=== PATIENT | male | born 1930 | race Caucasian/White ===

== ENCOUNTER 2017-01-19 09:02 | Inpatient (IN) | payer MEDICARE, BC ==
[2017-01-19 10:04] LABS: Hematocrit 25 % (42-52); Hemoglobin 8.2 g/dl (14.0-18.0); Mean Corpuscular HGB Conc 33 g/dl (31-36); Mean Corpuscular Hemoglobin 34 pg (27-31); Mean Corpuscular Volume 101 fL (80-94); Mean Platelet Volume 7 um3 (7.4-10.4); Red Blood Count 2.46 10^6/ul (4.0-5.4); Red Cell Distribution Width 16 % (10.5-15)
[2017-01-19 10:05] LABS: Comments Flag Yes; White Blood Count 2.6 10^3/ul (3.5-10.8)
[2017-01-19 10:13] LABS: ALT 12 U/L (7-52); AST 13 U/L (13-39); Albumin 2.9 g/dL (3.2-5.2); Alkaline Phosphatase 76 U/L (34-104); Anion Gap 7 mmol/L (2-11); BUN/Creatinine Ratio 16.5 (8-20); Blood Urea Nitrogen 19 mg/dL (6-24); C Reactive Protein 172.16 mg/L (< 5.00); CO2 Carbon Dioxide 23 mmol/L (22-32); Calcium 8.7 mg/dL (8.6-10.3); Chloride 100 mmol/L (101-111); EGFR African American 77.7 (>60); EGFR Non-African American 60.4 (>60); Globulin 3.2 g/dL (2-4); Glucose 116 mg/dL (70-100); Lipase < 10 U/L (11.0-82.0); Potassium 4.2 mmol/L (3.5-5.0); Sodium 130 mmol/L (133-145); Total Protein 6.1 g/dL (6.4-8.9)
[2017-01-19] MEDS ORDERED: Morphine INJ* 2 MG/ML 1 ML SYRINGE (TWO MG - NEW SYRINGE VERSION) IV PRN (13:05)
[2017-01-19 13:54] LABS: Prealbumin 6 mg/dL (18-38)
[2017-01-19] MEDS: Heparin VIAL(*) 5000 UNITS/ML VIAL (FIVE THOUSAND) SUBCUT SCH ×2 (14:41→22:01)
[2017-01-19] MEDS: NS 0.9% 1000 ML* 1,000 ML IV SCH (14:59)
[2017-01-19] MEDS ORDERED: PEG 3000 GI LAVAGE* 1 GALLON PO ONE (19:00)
--- NOTE | 2017-01-19 19:05 | PN ---
Progress Note - Progress Note Date of Service: 01/19/17 Note: Brief Surgery Note: (full consult dictated) 86 yo gen healthy male w/ 3-6 mo of decreased appetite and 30 # wt loss; more recently found to have iron-def anemia and most recently c/o lower abd pain w/ change in stools (constipated; hard stool; denies melena or hematochezia). CT scanned 01/14; sent to ED and admitted to hospitalist [facility] [place] today. Seen by and discussed w/ GI; we were also asked to see. Patient examined; labs and CT reviewed w/ Dr. Rodriguez Imp: suspicious for colon cancer; GI to do colonoscopy 01/20; prep today; surgical plans pending scope; discussed w/ Dr. Rodriguez
--- NOTE | 2017-01-19 19:53 | PN ---
Progress Note - Progress Note Date of Service: 01/19/17 SOAP: Subjective: Patient seen and examined. Care discussed with JESSICA Bose I reviewed his history and the CT scan performed last week He has tenderness along the right abdomen without peritoneal irritation. Labs reviewed-WBC and Hgb are abnormally low Plan: GI plans for colonoscopy tomorrow-will await results All discussed with patient and his and son who were present in the room tonight.
--- NOTE | 2017-01-19 23:51 | HP ---
CC: Dr. Bowser * [facility] MEDICINE HISTORY AND PHYSICAL: DATE OF ADMISSION: 01/19/17 PRIMARY CARE PROVIDER: Dr. Bowser. ATTENDING PHYSICIAN: Dr. Clara Lloyd * (dictation provided by Lorena Pires NP ). CHIEF COMPLAINT: Abdominal pain. HISTORY OF PRESENT ILLNESS: Mr. Rahman is an 86-year-old male with no significant past medical history significant for prostatectomy for prostate cancer in 2002, who presents today to the hospital with concern for abdominal pain. Mr. Rahman has a little bit of problems with confusion and short-term memory loss and some of the information is also obtained from his , who is at the bedside. Per the report, Mr. Rahman has had ongoing abdominal pain for about 2 to 3 months. However, over the past 3 weeks, the pain has become much more severe. He is followed up with his primary care physician, Dr. Bowser, and ultimately a CT abdomen and pelvis was ordered for 01/14/17. The radiologist spoken to Dr. Bowser, who spoke with the patient to note that there was significant edema and bowel wall thickening in the transverse colon with high concern for possible neoplastic process. The patient had persistent and more severe pain over the intervening days. He is having some difficulty ambulating due to pain. He is not having significant nausea or vomiting, but he has a very poor appetite and eats 1 meal a day with some supplemental Boost to improve his nutrition with his 's encouragement. He has had some bowel irregularities which they seemed to just attribute to the CT dye oral contrast. Today, he had a formed stool that was small pellets; there is no evidence of blood. Stool has not been black. In addition to this, Mr. Rahman and his are concerned for the patient's worsening balance issues and confusion. The states that sometimes he will go to look for something and even though, it is right in front of him, he cannot find it. He does not seem to note any vision changes. She also notes that he has had balance issues. This issue with increased worsening short-term memory, increased confusion, and balance issues have been going on for about 6 months. In the emergency room Mr. Rahman had labs, which confirmed a stable leukopenia with white blood cell count of 2.6. He has a worsening anemia with a hemoglobin 8.2, his BUN and creatinine are normal. His C-reactive protein is 172.16. His vitals are stable. He is afebrile. PAST MEDICAL HISTORY: 1. History of prostatectomy for prostate cancer with Dr. De Leon in 2002. 2. Tonsillectomy at age 5. 3. Hernia repair. MEDICATIONS: Ibuprofen 200 mg p.o. daily. ALLERGIES: No known drug allergies. FAMILY HISTORY: The patient reports his mother in 93 of old age. Dad at 76 of unknown causes. SOCIAL HISTORY: No report of alcohol, tobacco, or drug use. The patient lives with his who is his healthcare proxy. REVIEW OF SYSTEMS: Constitutional: No fever, no chills. Positive for 10- pound weight loss. Cardiac: No chest pain, no edema. Respiratory: No cough, hemoptysis, or shortness of breath. GI: No nausea, vomiting. Positive for poor appetite. Some bowel irregularity, but no description of significant diarrhea. Positive for abdominal pain, primarily along the right mid abdomen. : No gross hematuria, dysuria. Positive for prostate cancer. Neuro: No focal weakness or sensory loss. Positive for impaired balance and short-term memory loss. Eyes: No visual complaints. ENT: No dysphagia. Musculoskeletal : No arthralgias, myalgias. Skin: No rashes, no lesions. Psych: No depression or anxiety. PHYSICAL EXAMINATION GENERAL: Mr. Rahman is sitting in the bed. He is in no acute distress. VITAL SIGNS: Temperature 98.1, pulse rate 84, respiratory rate 15, O2 saturation 97% on room air, blood pressure 99/48. LUNGS: Clear to auscultation bilaterally with no accessory muscle use and good aeration. HEART: S1, S2. No murmur, rub, or gallop, and regular. ABDOMEN: Soft, nontender. Bowel sounds are positive x4. EXTREMITIES: No cyanosis or edema. NEURO: He is alert, he is oriented x3. He does have some evident short-term memory loss and a little bit of difficulty relating his story to me, although he does have good grasp on most of the details. He moves all extremities equally. There is no facial asymmetry or focal weakness. Extraocular movements are intact. His pupils were equal and reactive. There is no apparent visual field cut on my examination. He has good rapid alternating movements of hands. His [id number] is appropriate. SKIN: Intact. DIAGNOSTIC STUDIES/LAB DATA: Sodium 130, potassium 4.2, chloride 100, serum bicarbonate 23, BUN 19, creatinine 1.15, glucose 116. CRP 172.16. Lipase less than 10. WBC 2.6, hemoglobin 8.2, hematocrit 25, platelet count 247. CT abdomen and pelvis from 01/14/17 is read as follows: "There is marked circumference of wall thickening with submucosal edema in the transverse colon just distal to the hepatic flexure measuring up to 8 cm in length. Pericolonic infiltration of fat is noted. The possibility of a neoplastic process such as colon carcinoma should be considered. A focal colitis is considered less likely. No definite hepatic lesions are noted. ASSESSMENT AND PLAN: Mr. Rahman is an 86-year-old male with past medical history of prostate cancer, who presents today to the hospital with concern for ongoing abdominal pain that is worsening in severity associated with a 10-pound weight loss and new finding of possible colonic mass on CT abdomen and pelvis from 01/14/17. Our plans for observation in the hospital for the followin. Abdominal pain. I suspect the patient likely has a colonic cancer, although this will not be proven until he is able to have a biopsy. Plan for GI consultation with Dr. Siani. I have also consulted Dr. Rodriguez to review the case today to see if it will be appropriate to involve surgery at this stage , given the severity of the patient's pain. He shows no evidence of obstruction. He did have a bowel movement today. He is comfortable in the bed at the time of my examination. He has had no nausea and vomiting. Plan for morphine p.r.n. as well as Zofran. He will have IV fluids overnight. 2. Anemia. I suspect this is related to a possible malignancy in the colon. There is no report of black stool or lynette red blood, guaiac stool will be sent. At this point, his blood pressure is almost running about 100 systolically. He does have issues with balance, but there is no description of lightheadedness or dizziness. I think he is asymptomatic and will continue to monitor with CBC in the a.m. and transfuse as indicated. 3. Leukopenia, again I think this is secondary to his likely malignancy. I see no evidence of infection and he has no fever. He has no description of symptoms that would indicate infection. Plan to monitor. 4. DVT prophylaxis. With heparin subcu. 5. Code status is DNR and MOLST form has been completed with the patient and with at the bedside. 6. Disposition. To medical floor. TIME SPENT: Approximately 60 minutes was spent in admission of this patient, more than half of the time was spent with the patient at the bedside reviewing the events leading up to this hospitalization, performing the physical examination, and reviewing the plan of care. LORENA PIRES NP [id number]/CPS #: [id number] JEWELL
--- NOTE | 2017-01-20 03:35 | CONS ---
CC: Dr. Bowser, [facility] * SURGICAL CONSULT NOTE: DATE OF CONSULT: 01/19/17 ATTENDING SURGEON: Dr. Bright Rodriguez. CHIEF COMPLAINT: Possible colon cancer. HISTORY OF PRESENT ILLNESS: This is an 86-year-old male, who last underwent screening colonoscopy approximately 10 years ago with a reportedly normal study at that time. He has a 3- to 6-month period of decreased appetite with the resultant 30-pound weight loss. He was noted a couple of weeks ago to be anemic and also began to experience some stomach aches, initially noted on the left side and then radiating to the right side. These pains have been most notable in the morning but would decrease somewhat as the day went on, though never disappearing entirely. More recently, his pain increased and was associated with increased bloating and distention as well as a band-like sensation around his abdomen. He has also had 2 to 3 weeks of constipation with a passage of hard stool. He denies any melena, loose stool, or hematochezia. He has had lab work which shows anemia, but also leukopenia. A CT scan of the abdomen and pelvis was obtained on 01/14/17. This showed an area of significant thickening of the transverse colon just distal to the hepatic flexure with marked wall thickening with infiltration of the pericolonic fat and with concern for possible neoplasm. Also, noted was diverticulosis but without evidence of diverticulitis. The patient was referred by his primary care office to the ED and was admitted by the hospitalist service. He has already been seen by Dr. Saini from GI and plan is for a bowel prep this evening and colonoscopy tomorrow. At the present time , the patient states that he is without significant pain and in fact had by his recollection a normal bowel movement this morning. Of note, the patient is not always consistent in terms of his history and admits to some memory problems. There is no known family history of colorectal cancer. PAST MEDICAL HISTORY: Unremarkable for any chronic or significant past medical problems other than prostate cancer. As noted above, he does admit to some memory loss. He has been using ibuprofen of late p.r.n. for his abdominal pain. PAST SURGICAL HISTORY: Previous surgeries include tonsillectomy as a child, radical prostatectomy with Dr. De Leon in 2002 (most recent PSA this past year less than 1), open left inguinal herniorrhaphy with mesh in 2004, and bilateral cataract extraction with lens implant. CURRENT MEDICATIONS: He takes nothing prescription. He is takin. Vitamin D supplement once daily. 2. Ibuprofen 200 mg once daily. DRUG ALLERGIES: None known. FAMILY HISTORY: Negative for anesthesia problems, bleeding, or clotting disorders and as noted negative for colorectal cancer. SOCIAL HISTORY: The patient lives with his at home. 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 He is a former pipe smoker, who quit in 1971. He drinks on an average 1 glass of wine per day. He denies other drug use. REVIEW OF SYSTEMS: General: No recent constitutional symptoms or acute illnesses other than described in the HPI, weight loss as noted in the HPI with decreased appetite. Cardiovascular: No history of hypertension, chest pain, NV , palpitations, or heart murmur. Respiratory: No history of asthma, chronic cough, or shortness of breath. GI: As above per HPI, no additions. : No problems reported other than occasional urinary urgency and/or incontinence. I am not sure if he is currently followed by Dr. De Leon. Endocrine: No diabetes or thyroid dysfunction. Neuropsychological: Memory loss per his history and by limited exam. PHYSICAL EXAM: Height 5 feet 10 inches; weight 140 pounds by history; T-max 99.1, currently 98; blood pressure 109/48; pulse 73; respirations 18; room air saturation 100%. General: Well-nourished elderly male in no acute distress. He appears comfortable lying on the bed. Skin: Warm and dry, no suspicious rashes or lesions noted. HEENT: Pupils are equal, round, and reactive. EOMs intact. Positive for conjunctival pallor. No scleral icterus though he does have some yellowish discoloration around his eyes. Oropharynx, mucous membranes are moist. Teeth in [id number] repair. No intraoral lesions. Neck : No cervical or supraclavicular lymphadenopathy. Heart: Regular rhythm. No murmur noted. Lungs: Clear to auscultation. No rales or wheezes. Abdomen: Well-healed lower midline incision. I was not able to immediately notice a left inguinal herniorrhaphy incision. Bowel sounds are present. Abdomen is flat, not apparently distended, soft, and with tenderness limited to palpation in the right upper quadrant where there is a palpable mass. There are no peritoneal signs by rigidity, guarding, or referred tenderness. No palpable inguinal hernias. Genitalia and rectal are otherwise not done. Back: No spinous process or CVA tenderness. Extremities: No edema. Neurological: Grossly intact with some apparent memory deficits. The patient sometimes searches for words and/or uses incorrect terms or phrases ("Dr. De Leon told me I would not need to worry about my prostate cancer until the year 3000"). DIAGNOSTIC STUDIES/LAB DATA: White blood cell count 2600 (consistent with that measured since 01/02/17), hemoglobin 8.2 (down from 9.4), MCV was elevated prior to his acute illness. Electrolytes: Sodium 130, chloride 100, potassium is normal at 4.2, BUN and creatinine are normal, glucose is 116, CRP is elevated at 172. Albumin and prealbumin are decreased at 2.9 and 6 respectively. Iron level is recently measured and decreased to 27. I did not see specifically a CEA level. PSA level as noted above less than [address] scan with the result as noted above. IMPRESSION: Colon mass with high likelihood of being malignancy. PLAN: The patient will undergo a colonoscopy tomorrow after prep this evening. Surgical plans and recommendations will follow pending those results. The case was discussed with Dr. Rodriguez including personal review of the CT scan and lab work. Dr. Rodriguez will also see the patient for confirmation of findings and followup for recommendation and plan. JESSICA JOINER [id number]/[facility] [place] #: [id number] B[facility] SETON HOSPITALDavie
[2017-01-20] MEDS: Heparin VIAL(*) 5000 UNITS/ML VIAL (FIVE THOUSAND) SUBCUT SCH ×3 (05:56→21:04)
[2017-01-20] MEDS ORDERED: PEG 3000 GI LAVAGE* 1 GALLON PO ONE (07:00)
[2017-01-20 07:08] LABS: Comments Flag Yes; Hematocrit 24 % (42-52); Mean Corpuscular HGB Conc 34 g/dl (31-36); Mean Corpuscular Hemoglobin 34 pg (27-31); Mean Corpuscular Volume 100 fL (80-94); Mean Platelet Volume 7 um3 (7.4-10.4); Red Blood Count 2.35 10^6/ul (4.0-5.4); Red Cell Distribution Width 16 % (10.5-15); White Blood Count 2.7 10^3/ul (3.5-10.8)
[2017-01-20 07:25] LABS: EGFR African American 103.1 (>60); EGFR Non-African American 80.2 (>60); Potassium 3.7 mmol/L (3.5-5.0)
[2017-01-20] MEDS: NS 0.9% 1000 ML* 1,000 ML IV SCH (07:47)
--- NOTE | 2017-01-20 08:34 | CONS ---
CC: Dr. Bowser * CONSULTATION REPORT: DATE OF CONSULTATION: 01/19/17 REQUESTING PHYSICIAN: Lorena Pires NP. INDICATION: Colon mass. NARRATIVE: Mr. Rahman is a very pleasant, generally healthy 86-year-old gentleman, who does not take any medicines, who states over the past few weeks he has developed worsening abdominal pain. He states that it would be most severe first thing in the morning and would generally get better as the day goes on. He describes it as a belt like sensation across the middle of his abdomen. There has been no nausea, no vomiting. He has had increased constipation. He will have 3 bowel movements a week. He denies any blood in the stool. He also noticed decreased oral intake. He is not as hungry as he used to be. He has lost some weight. No fevers or chills. No rashes. Of note , he did have a colonoscopy with Dr. Nielsen in 2005, at which time a small polyp was removed. He denies any family history of colorectal cancer or colorectal polyps. PAST MEDICAL HISTORY: Prostate cancer. PAST SURGICAL HISTORY: Tonsillectomy, prostatectomy for prostate cancer. ALLERGIES: None. MEDICATIONS: Advil just started recently for his abdominal pain. FAMILY HISTORY: No GI malignancies in the family. SOCIAL HISTORY: Rare alcohol. No smoking. No IV drugs. He lives with his . REVIEW OF SYSTEMS: Twelve systems reviewed, other than that mentioned in the HPI were unremarkable. PHYSICAL EXAMINATION: Vital Signs: Temperature is 99.1, blood pressure is 115/ 44, respiratory rate of 16, O2 sat is 100%, pulse is 75. General: Well appearing 86- year-old male appears his stated age. Alert, oriented, pleasant, fluent. HEENT: Mucous membranes are moist without lesions, ulcers or exudates. Neck is supple. Trachea is midline. Head is normocephalic, atraumatic. Lymph : No supraclavicular or cervical lymphadenopathy. Heart: Regular rate and rhythm. Lungs: Clear to auscultation. No wheezes, rales, or rhonchi. Abdomen : Positive bowel sounds. Soft. He is tender throughout, but definitely more pronounced in the right upper quadrant. No rebound. No guarding. Skin is warm and dry. LABORATORY DATA/DIAGNOSTIC DATA: Labs of note, white count is 2.6, creatinine is 1.1, BUN is 19, hemoglobin 8.2, platelets of 247. He also has a CT of the abdomen and pelvis from the , which reveals marked circumferential wall thickening with submucosal edema in the transverse colon just distal to the hepatic flexure measuring up to 8 cm in length. No hepatic lesions are noted. ASSESSMENT: A pleasant 86-year-old gentleman with a recent CT showing possible colon cancer in his proximal transverse colon. At this point, he does need a colonoscopy. We will try and prep him adequately tonight and perform a colonoscopy tomorrow. This was discussed with the patient and in detail, they are agreeable. [id number]/CPS #: [id number] MTDD
[2017-01-20] MEDS ORDERED: Midazolam* 1 MG/ML 10 ML VIAL (10 MG) ONE (13:52)
[2017-01-20] MEDS ORDERED: Meperidine SYRINGE* 50 MG/ML ONE (13:52)
[2017-01-20] MEDS ORDERED: Morphine INJ* 2 MG/ML 1 ML SYRINGE (TWO MG - NEW SYRINGE VERSION) IV PRN (15:59)
--- NOTE | 2017-01-20 16:00 | PN ---
Subjective Date of Service: 01/20/17 Interval History: Sleeping in bed. Objective Active Medications: Acetaminophen (Tylenol Tab*) 650 mg PO Q6H PRN PRN Reason: PAIN Heparin Sodium (Porcine) (Heparin Vial(*)) 5,000 units SUBCUT Q8HR [facility] Last Admin: 01/20/17 14:04 Dose: Not Given Sodium Chloride (Ns 0.9% 1000 Ml*) 1,000 mls @ 75 mls/hr IV PER RATE [facility] Last Admin: 01/20/17 07:47 Dose: 75 mls/hr Morphine Sulfate (Morphine Inj (Syringe)*) 2 mg IV Q4H PRN PRN Reason: PAIN - MILD Ondansetron HCl (Zofran Inj*) 4 mg IV Q6H PRN PRN Reason: NAUSEA Vital Signs 01/19/17 01/19/17 01/19/17 16:20 19:53 20:00 Temperature 98.0 F 98.3 F Pulse Rate 73 75 Respiratory 18 20 16 Rate Blood Pressure 109/48 106/50 (mmHg) O2 Sat by Pulse 100 98 Oximetry 01/20/17 01/20/17 01/20/17 00:06 03:42 07:44 Temperature 99.0 F 98.4 F Pulse Rate 87 85 67 Respiratory 18 16 16 Rate Blood Pressure 130/59 102/49 95/25 (mmHg) O2 Sat by Pulse 98 100 96 Oximetry 01/20/17 01/20/17 01/20/17 07:50 08:00 15:43 Temperature 97.5 F Pulse Rate 64 Respiratory 16 16 Rate Blood Pressure 98/42 113/43 (mmHg) O2 Sat by Pulse 97 Oximetry 01/20/17 15:48 Temperature 97.5 F Pulse Rate 64 Respiratory 16 Rate Blood Pressure 113/43 (mmHg) O2 Sat by Pulse 97 Oximetry Oxygen Devices in Use Now: None Appearance: Head partly up in bed, sleeping. Looks comfortable. Respiratory: Symmetrical Chest Expansion and Respiratory Effort, Clear to Auscultation Cardiovascular: NL Sounds; No Murmurs; No JVD, RRR, No Edema, - - Pulse strong and regular Extremities: No Edema, No Clubbing, Cyanosis, - Skin: No Rash or Ulcers, No Nodules or Sclerosis, - Neurological: - - Sleeping deeply, did not awaken. No tremor. Result Diagrams: 01/20/17 06:36 01/20/17 06:36 Assess/Plan/Problems-Billing Assessment: - Patient Problems (1) Colonic thickening Current Visit: Yes Status: Acute Code(s): K63.9 - DISEASE OF INTESTINE, UNSPECIFIED SNOMED Code(s): 361316821 Comment: Marked thickening of transverse colon. Colonoscopy scheduled for . (2) Anemia Current Visit: Yes Status: Acute Code(s): D64.9 - ANEMIA, UNSPECIFIED SNOMED Code(s): 718801905 Comment: Suspect mainly ACD. Note sl elevated MCV. (3) Leukopenia Current Visit: Yes Status: Acute Code(s): D72.819 - DECREASED WHITE BLOOD CELL COUNT, UNSPECIFIED SNOMED Code(s): 66682749 Comment: Possibly related to an underlying malignancy.
--- NOTE | 2017-01-20 17:32 | PN ---
Progress Note - Progress Note Date of Service: 01/20/17 SOAP: Subjective: Sleeping in his bed, just returned from colonoscopy suite. at bedside, eating dinner. Patient appears comfortable. states patient was tired from bowel prep and colonoscopy today, would like to rest for the evening. Per , he had no complaints today. Objective: VSS, afebrile Exam deferred at this time Colonoscopy operative report is not available at this time. Per , a finding of colonic mass was confirmed, biopsies were taken for pathologic evaluation Assessment: An 86 y/o male with abdominal pain and a new finding of transverse colon mass. Plan: Await operative report and pathology report regarding colonic mass. Will discuss with attending surgeon.
[2017-01-21] MEDS: Heparin VIAL(*) 5000 UNITS/ML VIAL (FIVE THOUSAND) SUBCUT SCH ×3 (06:20→20:52)
--- NOTE | 2017-01-21 06:24 | PRO ---
DATE: 01/20/17 - ROOM #[id number] REFERRING PHYSICIAN: Arie Bowser * PROCEDURE: Colonoscopy to hepatic flexure mass with biopsy and tattooing to and 5 cm distal to the lesion. 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 He had had a prior colonoscopy in 2005 for removal of polyps by Dr. Gonzalez. ENDOSCOPIST: Pritesh Jose MEDICATIONS: Midazolam 3, meperidine 25. FINDINGS: He is a tall, slender, older man, appearing younger than his stated age though, incontinent of liquid stool. He is grossly contaminated below the umbilicus. This was cleaned up. Digital rectal revealed diminished sphincter tone and a stony hard 5-mm nodule to the right of the prostate. Initial views show considerable opaque fluid. Over a liter was lavaged clear. The scope passed easily into the sigmoid and then descending where there was a sessile, low profile, benign-appearing polyp. About 25 cm above that, in the proximal transverse to hepatic flexure, there was a mass that appeared to be near obstructing. A window through it could not be seen. It distorted the bowel and it was approached somewhat tangentially and biopsied x5. Then tattooing was done successfully to and 4 to 5 cm distal, 2 injections at each location. Further withdrawal views showed no other abnormality. IMPRESSION: Hepatic flexure colon mass - a Surgery consult has been obtained. Addendum - adenocarcinoma [id number]/[facility] [place] #: [id number] MTDD
--- NOTE | 2017-01-21 09:09 | PN ---
Subjective Date of Service: 01/21/17 Interval History: C/O 20-40 lb weight loss and anorexia, dysgusia over past few months. Mild mid abd discomfort. Objective Active Medications: Acetaminophen (Tylenol Tab*) 650 mg PO Q6H PRN PRN Reason: PAIN Heparin Sodium (Porcine) (Heparin Vial(*)) 5,000 units SUBCUT Q8HR [facility] Last Admin: 01/21/17 06:20 Dose: 5,000 units Sodium Chloride (Ns 0.9% 1000 Ml*) 1,000 mls @ 75 mls/hr IV PER RATE [facility] Last Admin: 01/20/17 07:47 Dose: 75 mls/hr Morphine Sulfate (Morphine Inj (Syringe)*) 1 mg IV Q4H PRN PRN Reason: PAIN - MILD Ondansetron HCl (Zofran Inj*) 4 mg IV Q6H PRN PRN Reason: NAUSEA Vital Signs 01/20/17 01/20/17 01/20/17 15:43 15:48 19:47 Temperature 97.5 F 97.5 F 98.2 F Pulse Rate 64 64 76 Respiratory 16 16 18 Rate Blood Pressure 113/43 113/43 110/50 (mmHg) O2 Sat by Pulse 97 97 99 Oximetry 01/20/17 01/20/17 01/21/17 20:00 23:58 03:45 Temperature 97.7 F 98.2 F Pulse Rate 81 78 Respiratory 16 16 16 Rate Blood Pressure 119/58 120/43 (mmHg) O2 Sat by Pulse 99 97 Oximetry Oxygen Devices in Use Now: None Appearance: Alert, partly up in bed. In good spirits. Looks comfortable. Eyes: No Scleral Icterus Abdominal: No Hepatosplenomegaly, - - Soft, nl BS. Mild mid-abd tenderness. Extremities: No Edema, No Clubbing, Cyanosis, - Skin: No Rash or Ulcers, No Nodules or Sclerosis, - Neurological: Alert and Oriented x 3, NL Sensation Result Diagrams: 01/20/17 06:36 01/20/17 06:36 Assess/Plan/Problems-Billing Assessment: - Patient Problems (1) Colonic thickening Current Visit: Yes Status: Acute Code(s): K63.9 - DISEASE OF INTESTINE, UNSPECIFIED SNOMED Code(s): 571824737 Comment: Marked thickening of transverse colon. Colonoscopy done 01/20, showed near-obstructin colonic mass in transverse colon to hepatic flexure. Path report verbal report was mod diff invasive adenoca. Dr. Oconnor will operate 01/22/17. (2) Anemia Current Visit: Yes Status: Acute Code(s): D64.9 - ANEMIA, UNSPECIFIED SNOMED Code(s): 596666971 Comment: Suspect mainly ACD. Note sl elevated MCV. (3) Leukopenia Current Visit: Yes Status: Acute Code(s): D72.819 - DECREASED WHITE BLOOD CELL COUNT, UNSPECIFIED SNOMED Code(s): 81829143 Comment: Possibly related to an underlying malignancy.
--- NOTE | 2017-01-21 11:25 | PN ---
Progress Note - Progress Note Date of Service: 01/21/17 Note: Time spent on discharge 35 minutes.
--- NOTE | 2017-01-21 13:34 | PN ---
Progress Note - Progress Note Date of Service: 01/21/17 Note: Long discussion with patient and family regarding weight loss, malnutrition, near obstructing colon cancer. Discussed at tumor board today as well. He will need resection to avoid obstruction. Not feasible to replenish nutritionally pre-op. He is at higher risk, and may need a diverting stoma to decrease risk of anastomotic leak. They understand and agree to proceed, will do so tomorrow.
[2017-01-21] MEDS: NS 0.9% 1000 ML* 1,000 ML IV SCH (14:38)
[2017-01-21] MEDS: Neomycin TAB* 500 MG PO SCH ×3 (14:38→22:54)
[2017-01-21] MEDS: metroNIDAZOLE TAB* 250 MG PO SCH ×3 (14:38→22:53)
--- NOTE | 2017-01-21 14:39 | RAD ---
INDICATION: Colon carcinoma evaluate for metastatic disease. COMPARISON: There are no prior studies available for comparison. TECHNIQUE: Dual-energy PA and lateral views of the chest were obtained. FINDINGS: The heart is within normal limits in size. Mediastinal and hilar contours appear within normal limits. The lungs are hyperinflated and clear. There is blunting of the left costophrenic angle consistent with a trace pleural effusion or pleural thickening. IMPRESSION: 1. BLUNTING OF THE LEFT COSTOPHRENIC ANGLE CONSISTENT WITH A TRACE PLEURAL EFFUSION OR PLEURAL THICKENING. 2. COPD.
--- NOTE | 2017-01-22 03:51 | DS ---
CC: Dr. Driscoll; Dr. Arie Bowser * DISCHARGE SUMMARY: DATE OF ADMISSION: DATE OF DISCHARGE: 01/21/17 HISTORY OF PRESENT ILLNESS: This 86-year-old man presented with abdominal pain. This has been going for 2 to 3 months and progressed. His primary care physician ordered a CT of the abdomen and pelvis, which was done on 01/14/17. This showed much thickening of the transverse colon with a suggestion of a neoplasm. The patient also gives a history of anorexia and weight loss of 20 to 40 pounds. As a separate complaint, he complained of loss of taste. The rest of the history is detailed in the admission note. The patient was prepped for colonoscopy, which was done by Dr. Jose on 01/20/17, a mass was seen in the transverse colon, a window could not be seen to pass the colonoscope past the mass for biopsies to be taken. 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 Patient at the time of this dictation planned to follow up with Dr. Driscoll 10:15 a.m. on 01/22/17, but the surgical service later scheduled him for surgery on so the patient was NOT discharged. DIAGNOSES as of 01/21/17: 1. Colon carcinoma. 2. Leukopenia. 3. Anemia. 4. Malnutrition. DISCHARGE MEDICATION as of 01/21/17: 1. Ibuprofen 200 mg daily p.r.n. [id number]/[facility] #: [id number] MTDD
[2017-01-22] MEDS: NS 0.9% 1000 ML* 1,000 ML IV SCH (03:57)
[2017-01-22 08:23] LABS: Hematocrit 21 % (42-52); Mean Corpuscular HGB Conc 34 g/dl (31-36); Mean Corpuscular Hemoglobin 34 pg (27-31); Mean Corpuscular Volume 100 fL (80-94); Mean Platelet Volume 7 um3 (7.4-10.4); Red Blood Count 2.07 10^6/ul (4.0-5.4); Red Cell Distribution Width 16 % (10.5-15)
[2017-01-22 08:30] LABS: Comments Flag Yes
[2017-01-22 08:31] LABS: White Blood Count 2.4 10^3/ul (3.5-10.8)
[2017-01-22 08:45] LABS: BUN/Creatinine Ratio 13.9 (8-20); Calcium 7.8 mg/dL (8.6-10.3); EGFR African American 119.9 (>60); EGFR Non-African American 93.2 (>60); Potassium 3.4 mmol/L (3.5-5.0)
[2017-01-22] MEDS ORDERED: Ertapenem* 1 GM in NS 0.9% 50 ML* 50 ML IVPB ONE (14:00)
[2017-01-22] MEDS ORDERED: Famotidine IV* 10 MG/ML 2 ML (20 mg) IV ONE (14:00)
[2017-01-22] MEDS ORDERED: Midazolam* 1 MG/ML 2 ML VIAL (2 MG) ONE (15:17)
[2017-01-22] MEDS ORDERED: fentaNYL* 50 MCG/ML 2 ML VIAL (100 MCG VIAL) ONE ×3 (15:17→18:59)
[2017-01-22] MEDS ORDERED: Rocuronium* 10 MG/ML VIAL ONE ×2 (16:00→18:00)
[2017-01-22] MEDS ORDERED: Succinylcholine* 20 MG/ML 10 ML VIAL ONE (16:57)
[2017-01-22] MEDS ORDERED: Ketorolac INJ* 30 MG/ML 1 ML VIAL ONE (16:57)
[2017-01-22] MEDS ORDERED: Dexamethasone IV* 4 MG/ML 1 ML (4 MG) ONE (16:57)
[2017-01-22] MEDS ORDERED: Ondansetron INJ* 2 MG/ML VIAL ONE (16:57)
[2017-01-22] MEDS ORDERED: Propofol* 10 MG/ML 20 ML BTL IV PUSH ONE (16:57)
[2017-01-22] MEDS ORDERED: Phenylephrine IV* 40 MCG/ML 10 ML SYRINGE ONE (16:57)
[2017-01-22] MEDS ORDERED: Lidocaine 2% PF * 5 ML VIAL ONE (16:57)
[2017-01-22] MEDS ORDERED: Gentamicin ADULT (*) 40 MG/ML VIAL ONE (17:32)
[2017-01-22] MEDS ORDERED: KETAMINE HCL* 50 MG/ML 10 ML VIAL ONE (18:28)
[2017-01-22] MEDS ORDERED: Acetaminophen IV 1GM/100ML * 1,000 MG/100 ML VIAL IVPB ONE (18:49)
[2017-01-22] MEDS ORDERED: DiMENhydriNATE IV* 50 MG/ML VIAL IV PUSH PRN (18:49)
[2017-01-22] MEDS ORDERED: HYDROmorphone INJ* 1 MG/ML CARPUJECT SYRINGE ONE ×2 (19:58→21:06)
[2017-01-22] MEDS ORDERED: Morphine INJ* 2 MG/ML 1 ML SYRINGE (TWO MG - NEW SYRINGE VERSION) IV PRN (20:25)
[2017-01-22] MEDS ORDERED: Acetaminophen IV 1GM/100ML * 100 ML ONE (20:26)
[2017-01-22] MEDS: HYDROmorphone INJ* 1 MG/ML CARPUJECT SYRINGE IV PRN ×2 (21:07→21:21)
[2017-01-22] MEDS: Heparin VIAL(*) 5000 UNITS/ML VIAL (FIVE THOUSAND) SUBCUT SCH (23:53)
[2017-01-22] MEDS: Ketorolac INJ* 15 MG/ML 1 ML VIAL IV PUSH SCH (23:55)
[2017-01-23] MEDS: Ketorolac INJ* 15 MG/ML 1 ML VIAL IV PUSH SCH ×4 (02:52→23:51)
[2017-01-23 05:39] LABS: Hematocrit 34 % (42-52); Hemoglobin 11.6 g/dl (14.0-18.0); Mean Corpuscular HGB Conc 34 g/dl (31-36); Mean Corpuscular Hemoglobin 33 pg (27-31); Mean Corpuscular Volume 96 fL (80-94); Mean Platelet Volume 8 um3 (7.4-10.4); Red Blood Count 3.56 10^6/ul (4.0-5.4); Red Cell Distribution Width 19 % (10.5-15)
[2017-01-23 05:41] LABS: Comments Flag Yes
[2017-01-23 05:46] LABS: Albumin 2.6 g/dL (3.2-5.2); BUN/Creatinine Ratio 17.7 (8-20); Calcium 8.1 mg/dL (8.6-10.3); EGFR African American 95.7 (>60); EGFR Non-African American 74.4 (>60); Globulin 2.8 g/dL (2-4); Potassium 4.3 mmol/L (3.5-5.0); Total Bilirubin 1.1 mg/dL (0.2-1.0); Total Protein 5.4 g/dL (6.4-8.9)
[2017-01-23] MEDS: Heparin VIAL(*) 5000 UNITS/ML VIAL (FIVE THOUSAND) SUBCUT SCH ×2 (09:24→23:44)
[2017-01-23] MEDS: Ondansetron INJ* 2 MG/ML VIAL IV PRN (10:59)
[2017-01-23 11:08] LABS: Magnesium 1.9 mg/dL (1.9-2.7)
--- NOTE | 2017-01-23 13:46 | OP ---
CC: Dr. Arie Bowser; Dr. Clara Lloyd OPERATIVE REPORT: DATE OF OPERATION: 01/22/17 DATE OF : 32 SURGEON: Jose G De Leon MD ANESTHESIOLOGIST: Dr. Cho. ANESTHESIA: General. 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 OPERATIVE PROCEDURE: Cystoscopy, internal urethrotomy, and transurethral incision of bladder neck. COMPLICATIONS: None. OPERATIVE FINDINGS: 1. Stricture of proximal bulbar urethra extending to bladder neck. 2. Normal-appearing bladder. CATHETER USED: 20-Belarusian Donovan. INDICATIONS: Avinash Rahman is an 86-year-old gentleman who had a radical prostatectomy done in 2002. H e was in the operating room for a colon resection procedure with Dr. Oconnor and I was called because of inability to pass a Donovan catheter resulting in some urethral bleeding. DESCRIPTION OF PROCEDURE: The patient was placed in dorsal lithotomy position. Sequential compressio n devices were in place and functioning. Initial cystoscopy revealed a normal-appearing distal ureth ra. The patient is status post radical prostatectomy. In the proximal urethra, a stricture was note d with some false passages noted where the catheterization had been attempted earlier. The stricture extended to the bladder neck. This was carefully dilated and a guidewire was introduced into the bl adder. Next, using the internal urethrotome, the urethra was carefully incised at the 12 o'clock pos ition. Once this was done, the resectoscope with the right angle knife electrode could be introduced and bladder neck incision was carried out at the 5 and 7 o'clock position successfully. A 20-Belarusian Donovan catheter was placed for bladder drainage. The patient tolerated the procedure satisfactorily and at the end of my procedure, Dr. Oconnor commenced the colon resection surgery. [id number]/[facility] #: [id number]
--- NOTE | 2017-01-23 15:18 | OP ---
CC: Dr. Oconnor; [facility]; [facility] OPERATIVE REPORT: DATE OF OPERATION: 01/22/17 DATE OF : 32 SURGEON: Waqas Oconnor MD DRAFTING SUPERVISOR: Viri Osei NP ANESTHESIOLOGIST: Dr. Cho. ANESTHESIA: General anesthetic. PRE-OP DIAGNOSIS: Carcinoma of the colon. POST-OP DIAGNOSIS: Carcinoma of the colon. OPERATIVE PROCEDURE: Ileocolic resection with protective loop ileostomy. DESCRIPTION OF PROCEDURE: The patient was supine on the operative table. After adequate general anesthetic, compression stockings, Adrianne Hugger warmer, and intravenous antibiotics, attempt was made to Donovan catheterization, it would not pass and coude catheter was tried. This was unsuccessful, so Dr. De Leon was called. He came in and performed cystoscopy, which he will dictate separately. He was able to place a Donovan catheter for us. Then, the abdomen was clipped and prepped with antiseptic, draped in a sterile fashion. Upper midline incision was created and ultimately it was expanded to about 8 to 10 inches in length. The tumor was in the proximal to mid transverse colon, was may be 12 to 15 cm in greatest dimension. It involved the full thickness of the colon in that location, extended deep into the transverse mesocolon and involved loop of the ileum and part of the ileal mesentery. It was into the gastrohepatic omentum as well. Adhesions of the omentum in the left upper quadrant and in the pelvis and on the right side were taken down. The right colon was mobilized in the gutter in the usual fashion and the gastrocolic omentum was taken off the greater curve of the stomach using the LigaSure device or clips or ligatures were appropriate. Down at the root of the transverse mesocolon, there was about 2-cm between the end of the tumor and the superior mesenteric vein and the vein branches were clipped and ligated in this region and the mesentery was divided. Suture ligature, clips, or plain ligature were utilized as appropriate for the large vessels and the other areas of the mesentery were controlled with the LigaSure device. The little colic artery was doubly ligated and the ileocolic artery was also suture ligated. Ultimately, all the mesenteric attachments were freed up and the ileum was divided proximal to the area where the tumor had invaded the small bowel. There was approximately 30 cm between the area of the ileal invasion and the ileocecal valve. So, in total probably 40 or more cm was resected. A site at the distal transverse colon was chose for resection. This was also divided using a ANTONIO stapler. Specimen was sent in formalin labeled ileotransverse colectomy. Inspection of the area revealed that the greater curve of the stomach was in good condition. The area of the lesser sac that had been opened up was in good condition. The duodenum was carefully examined and was in good condition and the side of the mesenteric resection was nicely hemostatic. The bowel at both sites of anastomosis was pink and anastomosis was created using a ANTONIO 80 stapler. The resultant enterotomy was closed using a TA 60 stapler 3.5 mm staple. The staple line was reinforced with sutures of silk and the crotch of anastomosis was also reinforced with silk suture. The operative field was irrigated with warm saline solution and free fluid was suctioned out. Given the magnitude and duration of the surgery, the age of the patient, the fact that he was anemic and receiving transfusions, the fact that he was somewhat malnourished and the fact that the resection required getting down to the root of the small bowel and transverse mesocolon and the fact that the anastomosis was in the distal transverse, I felt that this all created increased risk for anastomotic leak and therefore, a protective loop ileostomy was decided upon. Therefore proximally 30 cm back from the anastomosis, a site of the ileum was chosen and an ileostomy site was created to the right of the umbilicus in the usual fashion came through the rectus sheath and the bowel was brought out through the site. Silk sutures were placed underneath to keep the bowel from sliding back in and then some Intercede was placed over the loops of the stoma to minimize adhesions in that area and hemostasis was again confirmed. Midline fascia was closed using running #1 Vicryl, adipose was irrigated and skin approximated with surgical clips. The stoma was matured with the proximal lateral and distal medial. This was done using 3-0 Vicryl and then an appliance was placed. Gauze dressings were placed over the incision. He tolerated the procedure well, was brought to Recovery, extubated. There were no complications, no drains. Pathologic specimen as above. Sponge and instrument counts correct. He did get 2 units of packed cells during the surgery. Estimated blood was 250 mL. Due to the size and location of this tumor, this surgery was substantially more difficult and time consuming than typical for a colon resection. (About twice the normal time.) [id number]/[facility] #: [id number] [facility]
--- NOTE | 2017-01-23 18:33 | ED ---
Tena Knowles Thomas, scribed for Odilon Cedillo MD on 01/19/17 at 0937 . Abdominal Pain/Male - HPI Summary HPI Summary: The pt is a 86 y/o M referred to the ED by his PMD for evaluation of chronic abd pain. The pain does not radiate. The pain is rated 7/10. The pain is aggravated by nothing and is alleviated by pushing on his abdomen. 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 Pt additionally c/o constipation (before two days ago), chills, and unintentional weight loss (10 pounds in last two weeks). Pt denies N/V and fever. The patient had a CT Abd/ Pel on 01/14/17 that showed THERE IS MARKED CIRCUMFERENTIAL WALL THICKENING WITH SUBMUCOSAL EDEMA IN THE TRANSVERSE COLON JUST DISTAL TO THE HEPATIC FLEXURE MEASURING UP TO 8 CM IN LENGTH. PERICOLONIC INFILTRATION OF FAT IS NOTED. THE POSSIBILITY OF A NEOPLASTIC PROCESS SUCH COLON CARCINOMA SHOULD BE CONSIDERED. A FOCAL COLITIS IS CONSIDERED LESS LIKELY. NO DEFINITE HEPATIC LESIONS ARE NOTED. - History of Current Complaint Chief Complaint: EDAbdPain Stated Complaint: ABD PAIN Time Seen by Provider: 01/19/17 09:19 Hx Obtained From: Patient Onset/Duration: Still Present Timing: Lasting Weeks - chronic Severity Currently: Moderate Pain Intensity: 7 Pain Scale Used: 0-10 Numeric Location: Diffuse Aggravating Factor(s): Nothing Alleviating Factor(s): Other: - Pushing down on his abdomen Associated Signs And Symptoms: Positive: Other - Constipation, chills, unintentional weight loss; NEGATIVE: N/V, fever - Allergies/Home Medications Allergies/Adverse Reactions: Allergies Allergy/AdvReac Type Severity Reaction Status Date / Time No Known Allergies Allergy Verified 01/19/17 09:15 Home Medications: Home Medications Ibuprofen TAB* [Advil TAB*] 200 mg PO DAILY PRN 01/19/17 [History Confirmed ] PMH/Surg Hx/FS Hx/Imm Hx Previously Healthy: No Endocrine/Hematology History: Denies: Hx Diabetes Cardiovascular History: Denies: Hx Hypertension History: Denies: Hx Renal Disease Musculoskeletal History: Reports: Hx Arthritis - KNUCKLES, Hx Tendonitis - HX OF IN THE PAST Sensory History: Reports: Hx Cataracts - LEFT EYE, Hx Contacts or Glasses - GLASSES Denies: Hx Hearing Aid Opthamlomology History: Reports: Hx Cataracts - LEFT EYE, Hx Contacts or Glasses - GLASSES - Surgical History Surgery Procedure, Year, and Place: 2011-CATARACT RIGHT EYE-[facility] [place]. 193- TONSILLECTOMY. 2002-PROSTATE REMOVED-[facility] [place]. 2003-LEFT HERNIA REPAIR-[facility] [place] Hx Anesthesia Reactions: No Infectious Disease History: No Infectious Disease History: Denies: Traveled Outside the [place] in Last 30 Days - Family History Known Family History: Negative: Diabetes - Social History Lives: With Family Alcohol Use: Daily Alcohol Amount: GLASS OF WINE WITH DINNER Substance Use Type: Reports: None Smoking Status (MU): Former Smoker Amount Used/How Often: PIPE Review of Systems Positive: Chills, Other - Unintentional weight loss. Negative: Fever Positive: Abdominal Pain. Negative: Vomiting, Nausea All Other Systems Reviewed And Are Negative: Yes Physical Exam - Summary Physical Exam Summary: VITAL SIGNS: Reviewed. GENERAL: Patient is an elderly, fragile male who is lying comfortable in the stretcher. Patient is not in any acute respiratory distress. He is pale. HEAD AND FACE: Normocephalic and atraumatic. EYES: PERRLA, EOMI x 2, No injected conjunctiva. EARS: Hearing grossly intact. Ear canals and tympanic membranes are WNL. MOUTH: Oropharynx within normal limits. NECK: Supple, trachea is midline, no adenopathy, no JVD. CHEST: Symmetric, no tenderness at palpation LUNGS: Clear to auscultation bilaterally. No wheezing or crackles. CVS: RRR, S1 and S2 present, no murmurs or gallops appreciated. ABDOMEN: Soft. There is mild tenderness in the lower abdomen. No signs of distention. Positive bowel sounds. No rebound no guarding, and no masses palpated. No abdominal bruit or pulsations. EXTREMITIES: FROM in all major joints, no edema, no cyanosis or clubbing. NEURO: Alert and oriented x 3. No acute neurological deficits. Speech is normal. SKIN: Dry and warm. He is pale. Triage Information Reviewed: Yes Vital Signs On Initial Exam: Initial Vitals Temp Pulse Resp BP Pulse Ox 98.1 F 93 20 177/155 100 01/19/17 09:04 01/19/17 09:04 01/19/17 09:04 01/19/17 09:04 01/19/17 09:04 Vital Signs Reviewed: Yes - [place] Coma Scale Coma Scale Total: 15 Diagnostics - Vital Signs Vital Signs Temp Pulse Resp BP Pulse Ox 01/19/17 09:30 86 96/80 99 01/19/17 09:25 101 69 01/19/17 09:23 106/47 01/19/17 09:04 98.1 F 93 20 177/155 100 - Laboratory Result Diagrams: 01/19/17 09:47 01/19/17 09:47 Lab Statement: Any lab studies that have been ordered have been reviewed, and results considered in the medical decision making process. Abdominal Pain Fem Course/Dx - Course Assessment/Plan: The pt is a 86 y/o M referred to the ED by his PMD for evaluation of chronic abd pain. The pain does not radiate. The pain is rated 7/ 10. The pain is aggravated by nothing and is alleviated by pushing on his abdomen. 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 Pt additionally c/o constipation (before two days ago), chills, and unintentional weight loss (10 pounds in last two weeks). Pt denies N/V and fever. Test results show WBC 2.6, hemoglobin 8.2, hematocrit 25, glucose 116, and CRP 172. CT Abd/Pel from 01/14/17 shows THERE IS MARKED CIRCUMFERENTIAL WALL THICKENING WITH SUBMUCOSAL EDEMA IN THE TRANSVERSE COLON JUST DISTAL TO THE HEPATIC FLEXURE MEASURING UP TO 8 CM IN LENGTH. PERICOLONIC INFILTRATION OF FAT IS NOTED. THE POSSIBILITY OF A NEOPLASTIC PROCESS SUCH COLON CARCINOMA SHOULD BE CONSIDERED. A FOCAL COLITIS IS CONSIDERED LESS LIKELY. NO DEFINITE HEPATIC LESIONS ARE NOTED. The patient seems to be more anemic. He has been losing more weight recently, with weight loss of eight pounds in the last two weeks. I discussed the CT findings and case with Dr. Walter, who will accept the patient for admission. The patient is hemodynamically stable and alert and oriented x3. - Diagnoses Provider Diagnoses: Abdominal pain, Weight loss, CT Abnormal finding rule out malignancy - Provider Notifications Discussed Care Of Patient With: Clara Walter Time Discussed With Above Provider: 10:59 Instructed by Provider To: Admit As Inpatient Discharge - Discharge Plan Condition: Fair Disposition: ADMITTED TO [facility] The documentation as recorded by the Tena john Thomas accurately reflects the service I personally performed and the decisions made by , Odilon Cedillo MD.
[2017-01-23] MEDS ORDERED: Ketorolac INJ* 15 MG/ML 1 ML VIAL ONE (23:41)
[2017-01-24 05:19] LABS: Hematocrit 26 % (42-52); Hemoglobin 9.2 g/dl (14.0-18.0); Mean Corpuscular HGB Conc 35 g/dl (31-36); Mean Corpuscular Hemoglobin 33 pg (27-31); Mean Corpuscular Volume 95 fL (80-94); Mean Platelet Volume 7 um3 (7.4-10.4); Red Blood Count 2.75 10^6/ul (4.0-5.4); Red Cell Distribution Width 18 % (10.5-15)
[2017-01-24 05:27] LABS: Albumin 2.1 g/dL (3.2-5.2); BUN/Creatinine Ratio 20.3 (8-20); Calcium 7.5 mg/dL (8.6-10.3); EGFR African American 119.9 (>60); EGFR Non-African American 93.2 (>60); Globulin 2.6 g/dL (2-4); Magnesium 1.7 mg/dL (1.9-2.7); Potassium 3.5 mmol/L (3.5-5.0); Total Bilirubin 0.5 mg/dL (0.2-1.0); Total Protein 4.7 g/dL (6.4-8.9)
[2017-01-24 05:35] LABS: Comments Flag Yes
[2017-01-24 05:36] LABS: White Blood Count 2.9 10^3/ul (3.5-10.8)
[2017-01-24] MEDS ORDERED: HYDROcodone/ACETAMIN 5-325 MG* 1 TAB PO PRN (08:46)
[2017-01-24] MEDS: Heparin VIAL(*) 5000 UNITS/ML VIAL (FIVE THOUSAND) SUBCUT SCH ×2 (09:35→21:43)
--- NOTE | 2017-01-24 14:58 | PN ---
Subjective Date of Service: 01/24/17 Interval History: Pain control good. Fair appetite. No new c/o. Objective Active Medications: Acetaminophen (Tylenol Tab*) 650 mg PO Q6H PRN PRN Reason: PAIN Hydrocodone Bitart/Acetaminophen ([place] 5-325 Tab*) 1 tab PO Q6H PRN PRN Reason: PAIN Heparin Sodium (Porcine) (Heparin Vial(*)) 5,000 units SUBCUT Q12HR [facility] Last Admin: 01/24/17 09:35 Dose: 5,000 units Lactated Ringer's (Lactated Ringers 1000 Ml Bag*) 1,000 mls @ 75 mls/hr IV PER RATE [facility] Magnesium Citrate (Citrate Of Magnesia*) 30 ml PO DAILY [facility] Morphine Sulfate (Morphine Inj (Syringe)*) 2 mg IV Q1H PRN PRN Reason: PAIN Ondansetron HCl (Zofran Inj*) 4 mg IV Q6H PRN PRN Reason: NAUSEA Last Admin: 01/23/17 10:59 Dose: 4 mg Vital Signs 01/23/17 01/23/17 01/23/17 15:29 15:35 16:08 Temperature 97.6 F Pulse Rate 86 Respiratory 16 Rate Blood Pressure 135/52 (mmHg) O2 Sat by Pulse 100 100 97 Oximetry 01/23/17 01/23/17 01/23/17 19:33 20:15 23:45 Temperature 98.3 F 98.2 F Pulse Rate 91 82 Respiratory 16 16 18 Rate Blood Pressure 125/48 144/52 (mmHg) O2 Sat by Pulse 98 97 Oximetry 01/24/17 01/24/17 01/24/17 00:00 07:11 07:45 Temperature 98.0 F Pulse Rate 75 Respiratory 16 16 Rate Blood Pressure 119/47 (mmHg) O2 Sat by Pulse 98 94 Oximetry 01/24/17 11:22 Temperature 97.3 F Pulse Rate 74 Respiratory 16 Rate Blood Pressure 136/50 (mmHg) O2 Sat by Pulse 98 Oximetry Oxygen Devices in Use Now: None Appearance: Alert, partly up in bed. In good spirits. Looks comfortable. Eyes: No Scleral Icterus Neck: NL Appearance and Movements; NL JVP, No Thyroid Enlargement, Masses Respiratory: Symmetrical Chest Expansion and Respiratory Effort, Clear to Auscultation, Clear to Percussion Cardiovascular: NL Sounds; No Murmurs; No JVD, RRR, No Edema, - Extremities: No Edema, No Clubbing, Cyanosis, - Skin: No Rash or Ulcers, No Nodules or Sclerosis, - Neurological: Alert and Oriented x 3, NL Sensation Result Diagrams: 01/24/17 04:45 01/24/17 04:45 Assess/Plan/Problems-Billing Assessment: - Patient Problems (1) Colonic thickening Current Visit: Yes Status: Acute Code(s): K63.9 - DISEASE OF INTESTINE, UNSPECIFIED SNOMED Code(s): 648385959 Comment: Marked thickening of transverse colon. Colonoscopy done 01/20, showed near-obstructin colonic mass in transverse colon to hepatic flexure. Path report verbal report was mod diff invasive adenoca. Dr. Oconnor did tumor resection and ileostomy 01/22/17. (2) Anemia Current Visit: Yes Status: Acute Code(s): D64.9 - ANEMIA, UNSPECIFIED SNOMED Code(s): 274325811 Comment: Suspect mainly ACD. Note sl elevated MCV. (3) Leukopenia Current Visit: Yes Status: Acute Code(s): D72.819 - DECREASED WHITE BLOOD CELL COUNT, UNSPECIFIED SNOMED Code(s): 97229177 Comment: Possibly related to an underlying malignancy. (4) Hypomagnesemia Current Visit: Yes Status: Acute Code(s): E83.42 - HYPOMAGNESEMIA SNOMED Code(s): 198418225 Comment: Sl low, likely artifactual due to low albumin. Will give small dose mag citrate to be on safe side. Sinus arrhythmia on ECG.
[2017-01-24] MEDS: Ondansetron INJ* 2 MG/ML VIAL IV PRN (16:38)
[2017-01-25] MEDS: Acetaminophen TAB* 325 MG PO PRN ×2 (00:47→21:31)
[2017-01-25 05:11] LABS: Hematocrit 27 % (42-52); Hemoglobin 9.3 g/dl (14.0-18.0); Mean Corpuscular HGB Conc 34 g/dl (31-36); Mean Corpuscular Hemoglobin 33 pg (27-31); Mean Corpuscular Volume 96 fL (80-94); Mean Platelet Volume 7 um3 (7.4-10.4); Red Blood Count 2.82 10^6/ul (4.0-5.4); Red Cell Distribution Width 18 % (10.5-15); White Blood Count 2.8 10^3/ul (3.5-10.8)
[2017-01-25 05:15] LABS: Comments Flag Yes
[2017-01-25 05:27] LABS: Calcium 8.2 mg/dL (8.6-10.3); EGFR African American 150.1 (>60); EGFR Non-African American 116.8 (>60); Potassium 3.6 mmol/L (3.5-5.0)
[2017-01-25] MEDS: Ondansetron INJ* 2 MG/ML VIAL IV PRN ×3 (07:38→21:31)
[2017-01-25] MEDS ORDERED: Magnesium CITRATE* 300 ML BTL PO SCH (09:00)
[2017-01-25] MEDS: Heparin VIAL(*) 5000 UNITS/ML VIAL (FIVE THOUSAND) SUBCUT SCH ×2 (10:27→21:43)
[2017-01-25] MEDS ORDERED: D10W IV SCH ×16 (17:00)
[2017-01-25] MEDS ORDERED: [UNRECOGNIZED DRUG - OTHER] IV SCH ×16 (17:00)
[2017-01-25] MEDS ORDERED: AMINO ACID INFUSION IV SCH ×16 (17:00)
[2017-01-25] MEDS ORDERED: TPN IV SCH ×16 (17:00)
[2017-01-25] MEDS: AMINO ACID INFUSION IV SCH ×11 (17:02)
[2017-01-25] MEDS: D10W IV SCH ×11 (17:02)
[2017-01-25] MEDS: TPN IV SCH ×11 (17:02)
[2017-01-25] MEDS: [UNRECOGNIZED DRUG - OTHER] IV SCH ×11 (17:02)
[2017-01-26 06:50] LABS: Albumin 2.2 g/dL (3.2-5.2); BUN/Creatinine Ratio 36.9 (8-20); Calcium 8.5 mg/dL (8.6-10.3); EGFR African American 150.1 (>60); EGFR Non-African American 116.8 (>60); Globulin 2.5 g/dL (2-4); Magnesium 1.8 mg/dL (1.9-2.7); Phosphorus 2.8 mg/dL (2.5-5.0); Total Bilirubin 0.4 mg/dL (0.2-1.0); Total Protein 4.7 g/dL (6.4-8.9)
--- NOTE | 2017-01-26 08:38 | PN ---
Progress Note - Progress Note Date of Service: 01/26/17 SOAP: Subjective: Reports doing well, denies any pain. Had some nausea last night, but no emesis. No appetite, although tolerating full liquids. TPN started yesterday. Some output in ileostomy bag, Donovan d/c'ed earlier. Denies fever or chills. Ambulatory. Objective: Awake and alert, some periods of confusions, but oriented X3 VSS, afebrile Lungs CTA bilat. Heart RRR, no murmurs Abdomen soft, non-tender. Mild distension and tympany Incision C/D/I Stoma viable with output of greenish liquid stool Ext. without edema I/O noted Labs reviewed Assessment: An 86 y/o male, s/p extended right colectomy due to nearly obstructing colonic mass, improving clinically. Plan: Continue TPN Ambulate as tolerated D/C plans discussed, patient ultimately prefer to go home vs STR facility Check labs in AM GI and DVT prophylaxis
[2017-01-26] MEDS ORDERED: Dextrose 50% Syringe 50 ML* 25 GM/50 ML SYRINGE IV PUSH PRN (08:42)
[2017-01-26] MEDS: Heparin VIAL(*) 5000 UNITS/ML VIAL (FIVE THOUSAND) SUBCUT SCH ×2 (09:31→21:10)
[2017-01-26] MEDS: Ondansetron INJ* 2 MG/ML VIAL IV PRN ×2 (10:32→16:05)
[2017-01-26] MEDS ORDERED: Furosemide IV* 10 MG/ML 2 ML VIAL (20 MG) IV ONE (11:00)
[2017-01-26] MEDS ORDERED: Insulin LISPRO* 1 UNITS UNIT SUBCUT SCH (12:00)
[2017-01-26] MEDS ORDERED: Furosemide IV* 10 MG/ML VIAL (40 MG) ONE (15:09)
[2017-01-26] MEDS ORDERED: Furosemide IV* 10 MG/ML VIAL (40 MG) IV ONE ×2 (15:13→21:00)
--- NOTE | 2017-01-26 15:31 | PN ---
Subjective Date of Service: 01/26/17 Interval History: This is an 86 year old male patient s/p extended colectomy POD4 for colonic mass. CAT called today for low sat, tachycardia and rigors. Stat CXR completed, Dr. Milna at bedside for CAT eval. Lasix IV given. Objective Active Medications: Acetaminophen (Tylenol Tab*) 650 mg PO Q6H PRN PRN Reason: PAIN Last Admin: 01/25/17 21:31 Dose: 650 mg Hydrocodone Bitart/Acetaminophen ([place] 5-325 Tab*) 1 tab PO Q6H PRN PRN Reason: PAIN Dextrose (D50w Syringe 50 Ml*) 12.5 gm IV PUSH .FOR FS < 60 - SS PRN PRN Reason: FS < 60 Furosemide (Lasix Iv*) 40 mg IV ONCE ONE Stop: 01/26/17 21:01 Heparin Sodium (Porcine) (Heparin Vial(*)) 5,000 units SUBCUT Q12HR CARLYN Last Admin: 01/26/17 09:31 Dose: 5,000 units Dextrose 500 ml/ Amino Acids 1 ,000 ml/ Fat Emulsion Intravenous 500 ml/ Sodium Chloride 100 meq/ Potassium Chloride 50 meq/ Potassium Phosphate 15 mmole/ Calcium Gluconate 7.5 meq/ Magnesium Sulfate 10 meq/ Multivitamins 10 ml/ Trace Metals 1 ml/Nutrition (Parenteral) 2,084.592 mls @ 86.858 mls/hr IV 1700 CARLYN Last Admin: 01/25/17 17:02 Dose: 86.858 mls/hr Metronidazole/Sodium Chloride (Flagyl 500 Mg Ivpb*) 500 mg in 100 mls @ 100 mls /hr IVPB Q8H CARLYN Cefepime HCl (Maxipime 1 Gm In Dextrose Duplex (*)) 1 gm in 50 mls @ 50 mls/hr IV Q12H CARLYN Insulin Human Lispro (Humalog*) 0 units SUBCUT Q6HR CARLYN PRN Reason: Protocol Last Admin: 01/26/17 12:56 Dose: 1 unit Morphine Sulfate (Morphine Inj (Syringe)*) 2 mg IV Q1H PRN PRN Reason: PAIN Omeprazole (Prilosec Cap*) 20 mg PO DAILY@0600 [facility] Ondansetron HCl (Zofran Inj*) 4 mg IV Q6H PRN PRN Reason: NAUSEA Last Admin: 01/26/17 10:32 Dose: 4 mg Vital Signs 01/25/17 01/25/17 01/25/17 15:33 19:58 21:30 Temperature 98.1 F 98.7 F Pulse Rate 92 99 Respiratory 18 18 18 Rate Blood Pressure 147/59 143/53 (mmHg) O2 Sat by Pulse 95 93 Oximetry 01/25/17 01/26/17 01/26/17 23:30 00:00 03:07 Temperature 98.5 F 98.4 F Pulse Rate 86 75 Respiratory 16 18 Rate Blood Pressure 146/50 144/52 (mmHg) O2 Sat by Pulse 93 93 93 Oximetry 01/26/17 01/26/17 01/26/17 07:24 07:25 11:23 Temperature 97.8 F 97.5 F Pulse Rate 90 91 Respiratory 20 20 20 Rate Blood Pressure 145/48 125/43 (mmHg) O2 Sat by Pulse 92 87 Oximetry 01/26/17 14:53 Temperature Pulse Rate 143 Respiratory Rate Blood Pressure 158/57 (mmHg) O2 Sat by Pulse 55 Oximetry Oxygen Devices in Use Now: OxyMask - 15L Appearance: Ill, fatigued, pale Eyes: PERRLA Ears/Nose/Mouth/Throat: - - dry oral mucosa Respiratory: - - tachypneic, increased WOB, RR in the 40's, course rales bilaterally Abdominal: No Hepatosplenomegaly, - - tender, ostomy and dressing in place, no erythema noted Extremities: No Edema, No Clubbing, Cyanosis Neurological: - - alert to person and place Nutrition: TPN - as per surgery Result Diagrams: 01/26/17 17:30 01/26/17 17:30 Assess/Plan/Problems-Billing Assessment: - Patient Problems (1) Respiratory distress Code(s): R06.03 - ACUTE RESPIRATORY DISTRESS SNOMED Code(s): 611572879 Comment: - On 15L Oxymask - Lasix 40mg IVP given - CXR does not appear to be congested, await read - Vomited x1 yesterday - aspiration?? (2) Hypoxemia Code(s): R09.02 - HYPOXEMIA SNOMED Code(s): 615965315 Comment: - Per above - Continue O2 to keep sat>90% - Empiric atbx with flagyl and cefepime - Blood cultures now, follow temps - Not likely PE, as BP is stable, no chest pain, continue to monitor closely - tx to ICU for closer monitoring (3) Colonic mass Code(s): K63.9 - DISEASE OF INTESTINE, UNSPECIFIED SNOMED Code(s): 023829132 Comment: - POD4 s/p colonic resection and ileostomy - Mass in transverse colon to hepatic flexure, path pending (adenoCA?) - Primary POC as per surgery - TPN as per surgery until bowel function returns and patient can trial PO intake - DVT prophy with heparin SQ (4) Anemia Code(s): D64.9 - ANEMIA, UNSPECIFIED SNOMED Code(s): 309131035 Comment: - Acute, post op - H&H recovered/stable - s/p 2 units 01/22 - Continue to monitor CBC (5) Tachycardia Current Visit: Yes Status: Acute Code(s): R00.0 - TACHYCARDIA, UNSPECIFIED SNOMED Code(s): 8037108 Comment: - etiology respiratory distress/aspiration/early sepsis? - BP stable - Continue tele in ICU - Empiric atbx and follow cultures Status and Disposition: to ICU for closer monitoring Counseling and/or Coordination of Care Minutes: Coord with nursing, respiratory staff and Dr. Milan, time spent >60mins Attending: Feroz Milan
--- NOTE | 2017-01-26 15:47 | RAD ---
HISTORY: Hypoxia COMPARISONS: January 21, 2017 VIEWS: 1: frontal portable view of the chest at 3:15 PM FINDINGS: LINES AND TUBES: None. CARDIOMEDIASTINAL SILHOUETTE: The cardiomediastinal silhouette is normal for portable technique. PLEURA: The costophrenic angles are sharp. No pleural abnormalities are noted. LUNG PARENCHYMA: There is confluent alveolar opacification of the retrocardiac left lower lung ABDOMEN: The upper abdomen is clear. There is no subphrenic gas. BONES AND SOFT TISSUES: No bone or soft tissue abnormalities are noted. IMPRESSION: LEFT BASILAR ATELECTASIS VERSUS CONSOLIDATION.
[2017-01-26] MEDS ORDERED: Ondansetron INJ* 2 MG/ML VIAL IV PRN (15:59)
[2017-01-26] MEDS ORDERED: LORazepam INJ* 2 MG/ML 1 ML VIAL IV PUSH PRN (15:59)
[2017-01-26] MEDS ORDERED: Cefepime(*) 1 GM in NS 0.9% 50 ML* 50 ML IVPB SCH (16:00)
[2017-01-26] MEDS ORDERED: LORazepam INJ* 2 MG/ML 1 ML VIAL IV PUSH ONE ×2 (16:00→18:01)
[2017-01-26] MEDS ORDERED: LORazepam INJ* 2 MG/ML 1 ML VIAL ONE (16:01)
[2017-01-26] MEDS ORDERED: Ondansetron INJ* 2 MG/ML VIAL ONE (16:02)
[2017-01-26] MEDS ORDERED: fentaNYL* 50 MCG/ML 2 ML VIAL (100 MCG VIAL) IV SLOW PU ONE ×3 (16:15→17:20)
[2017-01-26] MEDS ORDERED: Propofol* 10 MG/ML 20 ML BTL IV PUSH ONE ×2 (16:16)
[2017-01-26] MEDS ORDERED: fentaNYL* 50 MCG/ML 5 ML VIAL (250 MCG VIAL) ONE (16:17)
[2017-01-26] MEDS ORDERED: Propofol* 100 ML ONE (16:17)
[2017-01-26] MEDS ORDERED: Norepinephrine 16MCG/ML IVPRE* 4,000 MCG/250 ML BAG IV ONE ×2 (16:21→19:56)
[2017-01-26] MEDS ORDERED: Albumin Human 5%* 250 ML BTL IV ONE (17:28)
[2017-01-26] MEDS ORDERED: Acetaminophen IV 1GM/100ML * 1,000 MG/100 ML VIAL IVPB ONE (17:37)
[2017-01-26 17:59] LABS: Hematocrit 28 % (42-52); Hemoglobin 9.6 g/dl (14.0-18.0); Mean Corpuscular HGB Conc 34 g/dl (31-36); Mean Corpuscular Hemoglobin 33 pg (27-31); Mean Corpuscular Volume 97 fL (80-94); Mean Platelet Volume 8 um3 (7.4-10.4); Red Blood Count 2.91 10^6/ul (4.0-5.4); Red Cell Distribution Width 18 % (10.5-15); White Blood Count 1.6 10^3/ul (3.5-10.8)
--- NOTE | 2017-01-26 17:59 | CONSULT ---
Consult Consult: CRITICAL CARE MEDICINE DATE: 01/26/17 TIME: 1530 REFERRING PROVIDER: Bjorn REASON/CHIEF COMPLAINT: acute hypoxic resp failure HISTORY OF PRESENT ILLNESS: 86 M admitted originally due to obstructing colon ca s/p ileocolonic resection and protective loop ileostomy. GA. Recieved 2 untis of prbcs during stay. Fluid shifts dry then perhaps wet. lasix. ppn. ambulatory. Tolerating otherwise on the floors. Worsening dynamics today with acute HR and resp change from RA this am to CAT and presenting to ICU with NRB unable to oxygenate nor ventilate well. Hr 140s. Sats 70s. accompany pt. D/w Dr. Milan. D/w pts and planned to attempted bipap while son arrives in next few minutes. D/w Dr. Oconnor via phone and he was coming in. Son arrived and we discussed dynamics at length. Pt known DNR and will honor that, but they are ok with plans to move forward with trial intubation and they expressed understandings of his course perhaps not going well. REVIEW OF SYSTEMS: As per HPI. PAST MEDICAL HISTORY: As per HPI. MEDICATIONS: Reviewed. ALLERGIES: Reviewed. None. SOCIAL HISTORY: Reviewed. FAMILY HISTORY: Noncontributory at present. PHYSICAL EXAM: Vital Signs: Reviewed. as above. Neurologic: awake, anxious in distress not holding capacity. HEENT: anciteric, mmm. poor dentition. Cardiovascular: tachy distant, no loud m Respiratory: coarse rales bl Abdomen: soft, ileostomy intact. wound looks well. Extremities: cold and cyanotic; no edema. Access: 1 piv LABS: Reviewed. IMAGING: Reviewed. MEDICATIONS: Reviewed. ASSESSMENT: 86 M Acute hypoxic resp failure Aspiration pneumonitis - most likely scenario. Encroaching hypoxic encephalopathy Colon Ca s/p ileocolonic resection and protective loop ileostomy Malnutrition mod-severe degree Appearance of COPD PLAN: Neurologic: sedate with propofol. prn fent. Cardiovascular: Hypoperfused. interstial vol up and intravasc ok but cannot mobilize at this time and needs intravasc vol to maintain without overload. Albumin bolus. needs cvc Respiratory: Intubate. See if we can oxygenate and ventilate. may be unable to radha aprv and will need time if able. likely just aspiration on poor lung reserve. cxr post intubation. may consider ct pe as at risk, but seemingly pretest probability already falling and may not be warranted. need stability first. Gastrointestinal: place ogt. lis. sup. tpn tomorrow. Renal/Metabolic: hold diuretics. perfusion priority prior to fluid mobilization but cr well at baseline. replace claire that came out today. Infectious Disease: receiving cefepime and flagyl. fine for now. not even sure he will need abx but continue for now. Hematology: may dilute. vte prophylaxis. Endocrine: f/u bg and any steroid needs but avoiding empiric at this time. Musculoskeletal: healing will be his big priority and need to control his O2 consump[tion currently and see if he can resume a tolerable metabolic path Psych/Social: son and pts updated and expressed understanding. Supportive and preventative care as ordered. SUP: H2 VTE prophylaxis: heparin Claire catheter given critical illness, monitoring needs for accurate assessment of DOYLE and KDIGO criteria for critically ill patients and to avoid potential harms of urinary retention, skin breakdown/ulcers. Disposition: ICU Code Status: DNR, trial intubation Critical Care Time: 45min, excl procedures. Erin Barcenas DO
[2017-01-26 18:00] LABS: Add Diff/Slide Review? Slide Review Added; Comments Flag Yes
[2017-01-26] MEDS ORDERED: Albumin Human 5%* 250 ML in PREMIX* 0 ML IV ONE ×4 (18:00)
[2017-01-26] MEDS ORDERED: NS 0.9% 1000 ML* 1,000 ML IV ONE (18:04)
--- NOTE | 2017-01-26 18:12 | RAD ---
INDICATION: Post intubation COMPARISON: January 26, 2017 TECHNIQUE: An AP portable view obtained at 1758 hours is submitted. FINDINGS: Bones/Soft Tissues: There are no acute bony findings. There is no endotracheal tube in satisfactory position 2.5 cm above the bebo. Cardiomediastinal: The cardiomediastinal silhouette is normal. Lungs: There is hyperinflation. Pleura: There is blunting of the costophrenic angles consistent with small bilateral effusions. Other: None IMPRESSION: ENDOTRACHEAL TUBE IN PROPER POSITION. HYPERINFLATION. SMALL BILATERAL EFFUSIONS
--- NOTE | 2017-01-26 18:15 | PN ---
Progress Note - Progress Note Date of Service: 01/26/17 Note: CRITICAL CARE MEDICINE PROCEDURE NOTE DATE: 01/26/17 TIME: 1615 SERVICE: Critical Care Medicine LOCATION OF PROCEDURE: ICU PROCEDURE: Endotracheal intubation PROCEDURALIST: Dr. Barcenas Consent obtain: Yes, d/w son and pts , and procedure performed emergently Time out held: Not indicated INDICATION: Acute respiratory failure PROCEDURE: Oxygenation maintained and vitals monitored. Patient in supine position. Pre-medication with fentanyl 200mcg / propofol 50mg. Glidescope #3 inserted with Grade 1 view obtained. 8.0 endotracheal tube inserted to 24cm lip. Good chest rise with breath sounds appreciated in bilaterally lung sosa. EtCO2 + color change. Portable chest x-ray pending. Patient otherwise tolerated well. Erin Barcenas DO
--- NOTE | 2017-01-26 18:17 | PN ---
Progress Note - Progress Note Date of Service: 01/26/17 Note: CRITICAL CARE MEDICINE PROCEDURE NOTE DATE: 01/26/17 TIME: 1630 SERVICE: Critical Care Medicine LOCATION OF PROCEDURE: ICU PROCEDURE: Central line insertion PROCEDURALIST: Dr. Barcenas Consent obtain: Yes, verbal from pts son and Time out held: Yes INDICATION: Acute respiratory failure, Distributive shock PROCEDURE: Oxygenation maintained and vitals monitored. Patient in trendelenberg position. SITE: RIGHT Internal jugular Site preparation with chlorhexidine locally. Full sterile drape, gown, hat, mask, gloves. 5ml 1% Lidocaine utilized at incision site. Standard sterile Seldinger technique utilized via ultrasound guidance and catheter was inserted to 16cm and sutured in place. Good blood return. Minimal blood loss. Site dressed with tegaderm. Portable chest x-ray pending. Patient otherwise tolerated well. Erin Barcenas DO
[2017-01-26] MEDS: metroNIDAZOLE IV 500 MG/100ML* 500 MG/100 ML BAG IVPB SCH (18:19)
[2017-01-26 18:25] LABS: Albumin 2.5 g/dL (3.2-5.2); BUN/Creatinine Ratio 33.7 (8-20); Calcium 8.5 mg/dL (8.6-10.3); EGFR African American 108.7 (>60); EGFR Non-African American 84.5 (>60); Globulin 2.6 g/dL (2-4); Magnesium 1.8 mg/dL (1.9-2.7); Total Bilirubin 0.8 mg/dL (0.2-1.0); Total Protein 5.1 g/dL (6.4-8.9)
[2017-01-26 18:51] LABS: Potassium 4.3 mmol/L (3.5-5.0)
[2017-01-26 19:15] LABS: Immature Granulocytes 10 % (0-9); Metamyelocytes % 2 % (0-2); Myelocytes % 1 % (0-1); Neutrophil % 35 % (38-83); RBC Morphology Normal (Normal); Reactive Lymph % 1 % (0-6); Toxic Granulation 2+
[2017-01-26] MEDS: Cefepime 1 GM in Dextrose(*) 1 GM/50 ML BAG IV SCH (19:46)
[2017-01-26] MEDS: Propofol* 100 ML IV SCH (20:51)
[2017-01-26] MEDS: Norepinephrine 16MCG/ML IVPRE* 4,000 MCG/250 ML BAG IV SCH (20:53)
[2017-01-26] MEDS: D10W IV SCH ×11 (21:01)
[2017-01-26] MEDS: TPN IV SCH ×11 (21:01)
[2017-01-26] MEDS: [UNRECOGNIZED DRUG - OTHER] IV SCH ×11 (21:01)
[2017-01-26] MEDS: AMINO ACID INFUSION IV SCH ×11 (21:01)
[2017-01-26] MEDS: NS 0.9% 1000 ML* 1,000 ML IV SCH (22:48)
[2017-01-27] MEDS: Propofol* 100 ML IV SCH ×5 (00:39→21:16)
[2017-01-27] MEDS: Pantoprazole IV* 40 MG IV SCH ×3 (01:17→20:10)
[2017-01-27] MEDS: Chlorhexidine MOUTHWASH 0.12%* 15 ML UDC SWISH SPIT SCH ×6 (01:17→23:45)
[2017-01-27] MEDS: metroNIDAZOLE IV 500 MG/100ML* 500 MG/100 ML BAG IVPB SCH ×4 (01:30→23:45)
[2017-01-27] MEDS: Norepinephrine 16MCG/ML IVPRE* 4,000 MCG/250 ML BAG IV SCH ×6 (02:14→17:55)
[2017-01-27] MEDS: Cefepime 1 GM in Dextrose(*) 1 GM/50 ML BAG IV SCH (05:41)
[2017-01-27] MEDS ORDERED: Omeprazole CAP* 20 MG PO SCH (06:00)
[2017-01-27 06:12] LABS: Add Diff/Slide Review? Slide Review Added; Comments Flag Yes; Hematocrit 25 % (42-52); Hemoglobin 8.5 g/dl (14.0-18.0); Mean Corpuscular HGB Conc 34 g/dl (31-36); Mean Corpuscular Hemoglobin 33 pg (27-31); Mean Corpuscular Volume 97 fL (80-94); Mean Platelet Volume 8 um3 (7.4-10.4); Red Blood Count 2.58 10^6/ul (4.0-5.4); Red Cell Distribution Width 18 % (10.5-15); White Blood Count 4.9 10^3/ul (3.5-10.8)
[2017-01-27 06:27] LABS: Albumin 2.5 g/dL (3.2-5.2); BUN/Creatinine Ratio 28.6 (8-20); Calcium 8.1 mg/dL (8.6-10.3); EGFR African American 74.7 (>60); EGFR Non-African American 58.1 (>60); Globulin 2.3 g/dL (2-4); Potassium 3.9 mmol/L (3.5-5.0); Total Bilirubin 1.1 mg/dL (0.2-1.0); Total Protein 4.8 g/dL (6.4-8.9)
[2017-01-27] MEDS: NS 0.9% 1000 ML* 1,000 ML IV SCH (08:01)
[2017-01-27] MEDS: Heparin VIAL(*) 5000 UNITS/ML VIAL (FIVE THOUSAND) SUBCUT SCH ×2 (08:13→20:10)
--- NOTE | 2017-01-27 09:03 | PN ---
Progress Note - Progress Note Date of Service: 01/27/17 Note: POD#5 s/p colectomy with diverting ileostomy. Sedated, on vent, still on pressors. On abx. Urine clear. Moderate NG drainage. Some stoma output. Labs noted. Abd soft, incision clean, stoma pink and edematous. Impr: Resp failure due to aspiration. Care per Fax Machine Repairer. Replete nutrition as able to tolerate. Await pathology
--- NOTE | 2017-01-27 09:15 | PN ---
Progress Note - Progress Note Date of Service: 01/26/17 Note: Patient urgently transferred to ICU in respiratory failure. Long discussion with family regarding situation. At present will continue with full intervention.
[2017-01-27] MEDS ORDERED: Norepinephrine 16MCG/ML IVPRE* 4,000 MCG/250 ML BAG IV ONE (09:54)
--- NOTE | 2017-01-27 11:55 | PN ---
Progress Note - Progress Note Date of Service: 01/27/17 Note: CRITICAL CARE MEDICINE DATE: 01/27/17 TIME: 1030 SUBJECTIVE: Patient seen and examined. PHYSICAL EXAM: Vital Signs: Reviewed. 40% 20/10 on vent. levo high but bp well. Uout holding. afeb overnight. Neurologic: sedated, rass -4 HEENT: anciteric, perrl, ett in place. RIJ stable. Cardiovascular: hr down, reg, no loud m Respiratory: coarse bl but better. compliance poor but mv looks well. Abdomen: soft, ileostomy intact. wound looks well. Extremities: warmer; no edema. Access: RIJ LABS: Reviewed. IMAGING: Reviewed. MEDICATIONS: Reviewed. ASSESSMENT: 86 M Acute hypoxic resp failure Acute aspiration pneumonitis - certainly the case. Colon Ca s/p ileocolonic resection and protective loop ileostomy Malnutrition mod-severe degree COPD PLAN: Neurologic: sedate with propofol. prn fent. Cardiovascular: perfused. interstial vol up and intravasc ok. automobilize as able. can titrate off levophed today aiming for sbp >90. if unable to wean well , may have relative adreanl insuff can could need steroid pulse but conserving for now. Respiratory: radha pcv. 40%. tolerable but poor underlying compliance. not going to meet great criteria to liberate but see where he can get in next 24-48h. adjunctives. Gastrointestinal: ogt. sup. tpn today and tropic feeds. Renal/Metabolic: claire and f/u for mobilization. replete lytes and follow Infectious Disease: adjusted to cefepime and flagyl. not septic, just aspiration but given his hypoperfused state yesetrday and need for healing will keep abx a few days to ensure no bacterial invasion. Hematology: stable. vte prophylaxis. Endocrine: tolerable. Musculoskeletal: f/u ostomy and wound healing Psych/Social: will update family today. Supportive and preventative care as ordered. SUP: H2 VTE prophylaxis: heparin Claire catheter given critical illness, monitoring needs for accurate assessment of DOYLE and KDIGO criteria for critically ill patients and to avoid potential harms of urinary retention, skin breakdown/ulcers. Disposition: ICU Code Status: DNR, trial intubation Critical Care Time: 35min Erin Barcenas DO
[2017-01-27] MEDS ORDERED: cefTRIAXone VIAL(*) 1,000 MG in NS 0.9% 50 ML* 50 ML IVPB ONE (12:30)
[2017-01-27 13:59] LABS: Magnesium 1.5 mg/dL (1.9-2.7); Phosphorus 3.8 mg/dL (2.5-5.0)
[2017-01-27] MEDS: Acetaminophen TAB* 325 MG PO PRN (14:37)
[2017-01-27] MEDS: TPN* 24 HR with Dextrose 50% Water* 500 ML, Amino Acid Infusion 10%* 850 ML, Sterile Wa... CENTR SCH ×12 (16:48)
[2017-01-28] MEDS: Chlorhexidine MOUTHWASH 0.12%* 15 ML UDC SWISH SPIT SCH ×5 (03:25→20:29)
[2017-01-28 06:16] LABS: Albumin 2.1 g/dL (3.2-5.2); BUN/Creatinine Ratio 29.3 (8-20); Calcium 7.6 mg/dL (8.6-10.3); EGFR African American 92.4 (>60); EGFR Non-African American 71.8 (>60); Globulin 2.3 g/dL (2-4); Magnesium 1.8 mg/dL (1.9-2.7); Phosphorus 2.3 mg/dL (2.5-5.0); Potassium 3.5 mmol/L (3.5-5.0); Total Bilirubin 0.5 mg/dL (0.2-1.0); Total Protein 4.4 g/dL (6.4-8.9)
[2017-01-28] MEDS: Norepinephrine 16MCG/ML IVPRE* 4,000 MCG/250 ML BAG IV SCH (06:44)
--- NOTE | 2017-01-28 08:03 | PN ---
Progress Note - Progress Note Date of Service: 01/28/17 Note: POD#6 s/p colectomy Now on vent with resp failure due to aspiration pneumonia. Febrile to 101, VS noted UO large, small stoma output. On TPN and TF at 10 ml/hr. Labs noted. Exam: Sedated. Abd: Soft, non-distended, incis clean, stoma pink, edematous. Mild periph edema Disc w/ Dr Barcenas yest nancy He will cont to manage vent, feeds, abx. Path noted
[2017-01-28 08:18] LABS: Hematocrit 21 % (42-52); Hemoglobin 6.8 g/dl (14.0-18.0); Mean Corpuscular HGB Conc 33 g/dl (31-36); Mean Corpuscular Hemoglobin 32 pg (27-31); Mean Corpuscular Volume 98 fL (80-94); Mean Platelet Volume 9 um3 (7.4-10.4); Red Cell Distribution Width 18 % (10.5-15)
[2017-01-28 08:19] LABS: Add Diff/Slide Review? Manual Diff Added; Comments Flag Yes
[2017-01-28] MEDS: metroNIDAZOLE IV 500 MG/100ML* 500 MG/100 ML BAG IVPB SCH ×2 (08:28→15:56)
[2017-01-28 08:54] LABS: Eosinophils % 1 % (0-6); Immature Granulocytes 19 % (0-9); Metamyelocytes % 3 % (0-2); Myelocytes % 2 % (0-1); Neutrophil % 53 % (38-83); Reactive Lymph % 2 % (0-6)
[2017-01-28 08:55] LABS: Toxic Granulation 1+
[2017-01-28 08:56] LABS: Add Path Review? YES
[2017-01-28] MEDS ORDERED: Magnesium Sulf 4 GM/100 ML IV* 4,000 MG/100 ML BAG IVPB ONE (09:11)
[2017-01-28] MEDS: Potassium & Sodium Phos 250MG* = 1 PACKET PO SCH ×3 (09:52→20:31)
[2017-01-28] MEDS: Heparin VIAL(*) 5000 UNITS/ML VIAL (FIVE THOUSAND) SUBCUT SCH ×2 (09:52→20:29)
[2017-01-28] MEDS: Pantoprazole IV* 40 MG IV SCH ×2 (09:53→20:31)
[2017-01-28] MEDS: Ciprofloxacin 400MG IVPREMIX(* 400 MG/200 ML BAG IVPB SCH ×2 (10:45→22:24)
--- NOTE | 2017-01-28 11:11 | PN ---
Progress Note - Progress Note Date of Service: 01/28/17 Note: CRITICAL CARE MEDICINE DATE: 01/28/17 TIME: 1000 SUBJECTIVE: Patient seen and examined. PHYSICAL EXAM: Vital Signs: Reviewed. 40% 20/10 on vent. levo at low dose to almost off. Uout holding. febrile overnight. Neurologic: sedated, rass -3 HEENT: anciteric, perrl, ett in place. RIJ stable. Cardiovascular: reg, no m appreciable Respiratory: coarse bl. compliance a little better. Abdomen: soft, ileostomy intact. wound looks well. Extremities: warmer; no edema. Access: RIJ LABS: Reviewed. IMAGING: Reviewed. MEDICATIONS: Reviewed. ASSESSMENT: 86 M Acute hypoxic resp failure Acute aspiration pneumonitis - certainly the case. Adeno colon Ca s/p ileocolonic resection and protective loop ileostomy Malnutrition mod-severe degree COPD multifactorial anemia - pancytopenia, with marrow suppression post shock as well. PLAN: Neurologic: sedate with propofol but dec for rass 0. prn fent. Cardiovascular: perfused. interstial vol up and mobilize today. wean levo. Respiratory: radha pcv. 40%. and if more alert can trial cpap but not ready to liberate yet today, but need to push line up for tomorrow given his relative dependancy appearance. adjunctives. Gastrointestinal: ogt. sup. tpn today and in tube feeds. Renal/Metabolic: claire and mobilization. replete lytes and follow. Infectious Disease: post aspiration. question of active infection seems less but given his aspiration, poor marrow and dynamics can allow short course of abx : change to cipro and flagyl - ceftriaxone likely cause of fevers. see how he equilibratess. Hematology: stable. vte prophylaxis. transfuse one unit prbc today. multifactorial anemia. now plt have dropped post inflammatory consumption, have impaired marrow but is in a window for Marcial although no signs of thrombosis, certainly they may become for dilute today with prbcs, but would rather not see them less then 100k tomorrow. heparin ok for now but follow. Endocrine: tolerable. Musculoskeletal: f/u ostomy and wound healing Psych/Social: will update family today. Supportive and preventative care as ordered. SUP: H2 VTE prophylaxis: heparin Claire catheter given critical illness, monitoring needs for accurate assessment of DOYLE and KDIGO criteria for critically ill patients and to avoid potential harms of urinary retention, skin breakdown/ulcers. Disposition: ICU Code Status: DNR, trial intubation Critical Care Time: 35min Erin Barcenas DO
[2017-01-28] MEDS ORDERED: cefTRIAXone VIAL(*) 1,000 MG in D5W 50 ML BAG* 50 ML IVPB SCH (12:30)
[2017-01-28] MEDS: fentaNYL* 50 MCG/ML 2 ML VIAL (100 MCG VIAL) IV SLOW PU PRN (14:49)
[2017-01-28] MEDS: Propofol* 100 ML IV SCH (17:01)
[2017-01-28] MEDS: TPN* 24 HR with Dextrose 50% Water* 500 ML, Amino Acid Infusion 10%* 850 ML, Sterile Wa... CENTR SCH ×12 (17:12)
[2017-01-28] MEDS: Acetaminophen TAB* 325 MG PO PRN (17:18)
[2017-01-29] MEDS: metroNIDAZOLE IV 500 MG/100ML* 500 MG/100 ML BAG IVPB SCH ×3 (00:23→17:00)
[2017-01-29] MEDS: Chlorhexidine MOUTHWASH 0.12%* 15 ML UDC SWISH SPIT SCH ×7 (00:23→21:23)
[2017-01-29] MEDS: Acetaminophen ADULT LIQ* 650 MG/20.3 ML UDC NG TUBE PRN ×2 (00:35→10:01)
[2017-01-29 06:21] LABS: BUN/Creatinine Ratio 33.3 (8-20); Calcium 8.3 mg/dL (8.6-10.3); EGFR African American 127.3 (>60); Magnesium 2.1 mg/dL (1.9-2.7); Phosphorus 1.5 mg/dL (2.5-5.0); Potassium 3.5 mmol/L (3.5-5.0)
[2017-01-29 06:57] LABS: Hematocrit 21 % (42-52); Hemoglobin 7.2 g/dl (14.0-18.0); Mean Corpuscular HGB Conc 34 g/dl (31-36); Mean Corpuscular Hemoglobin 32 pg (27-31); Mean Corpuscular Volume 94 fL (80-94); Mean Platelet Volume 9 um3 (7.4-10.4); Red Blood Count 2.27 10^6/ul (4.0-5.4); Red Cell Distribution Width 20 % (10.5-15); White Blood Count 2.9 10^3/ul (3.5-10.8)
[2017-01-29 07:01] LABS: Add Diff/Slide Review? Manual Diff Added; Comments Flag Yes
[2017-01-29 08:40] LABS: Immature Granulocytes 6 % (0-9)
[2017-01-29 08:47] LABS: Metamyelocytes % 1 % (0-2)
[2017-01-29] MEDS: Propofol* 100 ML IV SCH (08:48)
[2017-01-29 09:01] LABS: Eosinophils % 5 % (0-6); Neutrophil % 57 % (38-83); Reactive Lymph % 2 % (0-6)
[2017-01-29 09:14] LABS: Hypochromasia 1+
[2017-01-29 09:15] LABS: Add Path Review? YES; Polychromasia 1+
[2017-01-29] MEDS: Heparin VIAL(*) 5000 UNITS/ML VIAL (FIVE THOUSAND) SUBCUT SCH ×2 (09:30→21:23)
[2017-01-29] MEDS: Potassium & Sodium Phos 250MG* = 1 PACKET NG TUBE SCH ×3 (09:30→21:23)
[2017-01-29] MEDS: Ciprofloxacin 400MG IVPREMIX(* 400 MG/200 ML BAG IVPB SCH ×2 (09:30→21:23)
[2017-01-29] MEDS: Pantoprazole IV* 40 MG IV SCH ×2 (09:30→21:23)
[2017-01-29] MEDS ORDERED: Potassium Phosphate IV* 20 MMOLE in NS 0.9% 250 ML* 250 ML IVPB ONE (09:32)
[2017-01-29] MEDS ORDERED: Furosemide IV* 10 MG/ML VIAL (40 MG) IV SLOW PU ONE ×2 (09:32→18:00)
--- NOTE | 2017-01-29 12:07 | PN ---
Progress Note - Progress Note Date of Service: 01/29/17 Note: CRITICAL CARE MEDICINE DATE: 01/29/17 TIME: 1020 SUBJECTIVE: Patient seen and examined. PHYSICAL EXAM: Vital Signs: Reviewed. 40% high level cpap. low grade temps Neurologic: sedated, rass -2 but not communicating HEENT: anciteric, perrl, ett in place. RIJ stable. Cardiovascular: reg, no m appreciable Respiratory: coarse bl. compliance a touch better but mv high. Abdomen: soft, ileostomy intact. wound looks well. Extremities: warmer; inc edema. Access: RIJ LABS: Reviewed. IMAGING: Reviewed. MEDICATIONS: Reviewed. ASSESSMENT: 86 M Acute hypoxic resp failure Acute aspiration pneumonitis - certainly the case. Adeno colon Ca s/p ileocolonic resection and protective loop ileostomy Malnutrition mod-severe degree COPD multifactorial anemia - pancytopenia, with marrow suppression post shock as well. PLAN: Neurologic: sedation vacation today. prn fent. Cardiovascular: perfused. interstial vol up again and mobilize with lasix. Respiratory: radha cpap but not liberatable today given overall condition and confounders. cpap as tolerating and hope to get closer to liberation needs tomorrow. would not want to see him require vent through weekend. adjunctives. Gastrointestinal: ogt. sup. tpn adjusted. hold on tf. Renal/Metabolic: claire and mobilization today. replete lytes and add to tpn. Infectious Disease: post aspiration. on cipro and flagyl. no infection seen. may need to dc abx altogether soon. Hematology: stable. vte prophylaxis. transfuse one unit prbc today. multifactorial anemia with inflammatory consumption but could lead towards hemolytic but labs yesterday not indicative. check tomorrow. plt likely at veto. Endocrine: given lung dynamics and ongoing ailment, going to give a burst of steroids for what its worth to move towards liberation. Musculoskeletal: f/u ostomy and wound healing Psych/Social: updated family yesterday. Supportive and preventative care as ordered. SUP: H2 VTE prophylaxis: heparin Claire catheter given critical illness, monitoring needs for accurate assessment of DOYLE and KDIGO criteria for critically ill patients and to avoid potential harms of urinary retention, skin breakdown/ulcers. Disposition: ICU Code Status: DNR, trial intubation Critical Care Time: 35min FMykel Barcenas DO
[2017-01-29 12:27] LABS: Globulin 2.4 g/dL (2-4); Total Bilirubin 0.8 mg/dL (0.2-1.0); Total Protein 4.4 g/dL (6.4-8.9)
[2017-01-29] MEDS: methylPREDNISolone SOD 40 MG* 1 ML VIAL IV SCH ×2 (13:52→21:23)
--- NOTE | 2017-01-29 15:49 | PN ---
Progress Note - Progress Note Date of Service: 01/29/17 Note: POD#7 s/p colectomy, T3N0 carcinoma of transverse colon. Febrile, VS OK UO large I<O, large stoma output. Abd soft, incis clean, stoma pink, minimal edema. Minimal peripheral edema. On TPN, will continue until able to radha enteral. D/W Dr Barcenas, he will cont to manage the vent and abx.
[2017-01-29] MEDS: TPN* 24 HR with Dextrose 50% Water* 500 ML, Amino Acid Infusion 10%* 850 ML, Sterile Wa... CENTR SCH ×12 (17:12)
[2017-01-29] MEDS: Insulin REGULAR(*) 1 UNITS UNIT SUBCUT SCH (18:49)
[2017-01-30] MEDS: metroNIDAZOLE IV 500 MG/100ML* 500 MG/100 ML BAG IVPB SCH ×3 (00:24→16:42)
[2017-01-30] MEDS: Insulin REGULAR(*) 1 UNITS UNIT SUBCUT SCH ×4 (00:24→18:33)
[2017-01-30] MEDS: Chlorhexidine MOUTHWASH 0.12%* 15 ML UDC SWISH SPIT SCH ×6 (03:20→22:23)
[2017-01-30] MEDS: methylPREDNISolone SOD 40 MG* 1 ML VIAL IV SCH ×3 (06:18→20:30)
[2017-01-30 06:36] LABS: Hematocrit 25 % (42-52); Hemoglobin 8.5 g/dl (14.0-18.0); Mean Corpuscular HGB Conc 35 g/dl (31-36); Mean Corpuscular Hemoglobin 32 pg (27-31); Mean Corpuscular Volume 92 fL (80-94); Mean Platelet Volume 9 um3 (7.4-10.4); Red Blood Count 2.65 10^6/ul (4.0-5.4); Red Cell Distribution Width 20 % (10.5-15)
[2017-01-30 06:44] LABS: Add Diff/Slide Review? Slide Review Added; Comments Flag Yes; White Blood Count 2.7 10^3/ul (3.5-10.8)
[2017-01-30 06:53] LABS: Albumin 2.2 g/dL (3.2-5.2); BUN/Creatinine Ratio 40.3 (8-20); Calcium 8.3 mg/dL (8.6-10.3); EGFR African American 133.4 (>60); EGFR Non-African American 103.8 (>60); Globulin 2.8 g/dL (2-4); Magnesium 1.9 mg/dL (1.9-2.7); Phosphorus 2.9 mg/dL (2.5-5.0); Potassium 4.2 mmol/L (3.5-5.0); Total Bilirubin 0.6 mg/dL (0.2-1.0)
[2017-01-30] MEDS ORDERED: Furosemide IV* 10 MG/ML VIAL (40 MG) IV SLOW PU ONE (07:17)
[2017-01-30 08:26] LABS: Eosinophils % 2 % (0-6); Immature Granulocytes 3 % (0-9); Neutrophil % 66 % (38-83)
--- NOTE | 2017-01-30 08:29 | PN ---
Progress Note - Progress Note Date of Service: 01/30/17 Note: POD#8 s/p colectomy Temp down, VS OK UO large I<O. Large ileostomy output. On TPN Sedated on vent. Abd--soft, no infection, stoma pink Minimal periph edema. Vent and Abx per Dr Barcenas Once extubated, may need swallowing study prior to starting po's.
[2017-01-30 08:42] LABS: Polychromasia 1+
[2017-01-30] MEDS: Potassium & Sodium Phos 250MG* = 1 PACKET NG TUBE SCH ×3 (08:53→20:30)
[2017-01-30] MEDS: Pantoprazole IV* 40 MG IV SCH ×2 (08:53→20:30)
[2017-01-30] MEDS: Heparin VIAL(*) 5000 UNITS/ML VIAL (FIVE THOUSAND) SUBCUT SCH ×2 (08:53→20:30)
[2017-01-30 09:18] LABS: Add Path Review? YES
[2017-01-30 09:19] LABS: Toxic Granulation 1+
[2017-01-30] MEDS: Ciprofloxacin 400MG IVPREMIX(* 400 MG/200 ML BAG IVPB SCH ×2 (09:49→22:23)
--- NOTE | 2017-01-30 11:53 | PN ---
Progress Note - Progress Note Date of Service: 01/30/17 Note: CRITICAL CARE MEDICINE DATE: 01/30/17 TIME: 935 SUBJECTIVE: Patient seen and examined. PHYSICAL EXAM: Vital Signs: Reviewed. 30% high level cpap. temp better. Neurologic: rass 0, communicating HEENT: anciteric, perrl, ett in place. RIJ stable. Cardiovascular: reg, no m appreciable Respiratory: coarse bl and mv about 10lpm. good flow Abdomen: soft, ileostomy intact. wound well. Extremities: warmer; less edema. Access: RIJ LABS: Reviewed. IMAGING: Reviewed. MEDICATIONS: Reviewed. ASSESSMENT: 86 M Acute hypoxic resp failure Acute aspiration pneumonitis - certainly the case. Adeno colon Ca s/p ileocolonic resection and protective loop ileostomy Malnutrition mod-severe degree COPD multifactorial anemia - pancytopenia, with marrow suppression post shock as well. PLAN: Neurologic: off sedation. Cardiovascular: perfused. interstial vol better. Respiratory: radha cpap and liberatable directly to HFO2 today and allow equilibration. adjunctives from there. Gastrointestinal: sup. tpn same today. off tf. sswallow eval Renal/Metabolic: claire and mobilization today. Infectious Disease: on cipro and flagyl and will look to concluded. Hematology: stable. vte prophylaxis. counts better. blast appearing on cbc. will need onc f/u Endocrine: pulse of steroids. Musculoskeletal: f/u ostomy and wound healing Psych/Social: updated family this am. Supportive and preventative care as ordered. SUP: H2 VTE prophylaxis: heparin Claire catheter given critical illness, monitoring needs for accurate assessment of DOYLE and KDIGO criteria for critically ill patients and to avoid potential harms of urinary retention, skin breakdown/ulcers. Disposition: ICU Code Status: DNR, trial intubation Critical Care Time: 35min Erin Barcenas DO
[2017-01-30] MEDS ORDERED: Insulin GLARGINE(*) 1 UNITS UNIT SUBCUT ONE (12:05)
[2017-01-30] MEDS: fentaNYL* 50 MCG/ML 2 ML VIAL (100 MCG VIAL) IV SLOW PU PRN (14:06)
[2017-01-30] MEDS ORDERED: Propofol* 100 ML ONE (15:27)
[2017-01-30] MEDS ORDERED: Midazolam* 1 MG/ML 10 ML VIAL (10 MG) ONE (15:35)
[2017-01-30] MEDS ORDERED: fentaNYL* 50 MCG/ML 5 ML VIAL (250 MCG VIAL) ONE (15:35)
[2017-01-30] MEDS: Propofol* 100 ML IV SCH (16:13)
--- NOTE | 2017-01-30 16:23 | PN ---
Progress Note - Progress Note Date of Service: 01/30/17 Note: CRITICAL CARE MEDICINE DATE: 01/30/17 TIME: 1535 Post liberation directly to hfo2. tolerating but rapid shallow. failing during day and attempted some rescue with bipap but remaining with poor secretion clearance and weak overall. We discussed re-intubation, adn although he doesn't love the idea, he will accept. present as well. Re-intubation and hopefully tune up for a couple days and re-try with better success. See separate intubation note by COCO Jerez. Procedure well. Disposition: ICU Code Status: DNR, trial intubation Critical Care Time: 15min additional F. Cory Barcenas, DO
[2017-01-30] MEDS: TPN* 24 HR with Dextrose 50% Water* 500 ML, Amino Acid Infusion 10%* 850 ML, Sterile Wa... CENTR SCH ×12 (16:42)
--- NOTE | 2017-01-30 17:00 | RAD ---
Indication: Respiratory failure. Single frontal view of the chest performed at 1614 hours was reviewed. Comparison is made with previous exam dated January 26, 2017. No mediastinal shift is noted. Heart is of normal size and configuration. Lung hallman appear clear. ET tube is at the level of the aortic arch. Central line is in place. IMPRESSION: ET TUBE IN APPROPRIATE LOCATION. LUNG HALLMAN APPEAR HYPERINFLATED.
[2017-01-31] MEDS: metroNIDAZOLE IV 500 MG/100ML* 500 MG/100 ML BAG IVPB SCH ×2 (00:35→07:49)
[2017-01-31] MEDS: Insulin REGULAR(*) 1 UNITS UNIT SUBCUT SCH ×4 (00:36→19:38)
[2017-01-31] MEDS: Chlorhexidine MOUTHWASH 0.12%* 15 ML UDC SWISH SPIT SCH ×6 (03:07→21:55)
[2017-01-31] MEDS: fentaNYL* 50 MCG/ML 2 ML VIAL (100 MCG VIAL) IV SLOW PU PRN ×6 (03:19→21:26)
--- NOTE | 2017-01-31 04:42 | PRO ---
DATE OF PROCEDURE: 01/30/17 - ROOM #[id number] SERVICE: Critical care medicine. LOCATION: ICU. PROCEDURE PERFORMED: Endotracheal intubation. PROCEDURE BY: Yuki Ruelas NP. Dr. Mata, supervising. CONSENT OBTAINED: No; procedure performed emergently. TIME-OUT HELD: Not indicated. INDICATION: Acute respiratory failure secondary to aspiration, unable to control secretions. PROCEDURE IN DETAIL: Oxygen was maintained and vitals were monitored. The patient was placed in the supine position. He was premedicated with 200 of fentanyl and 4 of Versed. GlideScope #3 was inserted with a grade I view obtained. An AO endotracheal tube was inserted to 24 at the lip. Good chest rise and breath sounds were appreciated in bilateral lung sosa. The entitled CO2 monitoring was being applied, waiting on the number. Chest x-ray is pending. The patient tolerated the procedure well. YUKI RUELAS NP [id number]/[facility] #: [id number] MTDD
[2017-01-31] MEDS: methylPREDNISolone SOD 40 MG* 1 ML VIAL IV SCH ×2 (05:11→21:55)
[2017-01-31 05:34] LABS: Hematocrit 25 % (42-52); Hemoglobin 8.6 g/dl (14.0-18.0); Mean Corpuscular HGB Conc 35 g/dl (31-36); Mean Corpuscular Hemoglobin 32 pg (27-31); Mean Corpuscular Volume 93 fL (80-94); Mean Platelet Volume 9 um3 (7.4-10.4); Red Blood Count 2.66 10^6/ul (4.0-5.4); Red Cell Distribution Width 19 % (10.5-15); White Blood Count 2.3 10^3/ul (3.5-10.8)
[2017-01-31 05:36] LABS: Add Diff/Slide Review? Slide Review Added; Comments Flag Yes
[2017-01-31 05:49] LABS: Albumin 2.2 g/dL (3.2-5.2); BUN/Creatinine Ratio 54.2 (8-20); Calcium 8.1 mg/dL (8.6-10.3); EGFR African American 133.4 (>60); EGFR Non-African American 103.8 (>60); Globulin 2.9 g/dL (2-4); Phosphorus 3.3 mg/dL (2.5-5.0); Potassium 4.5 mmol/L (3.5-5.0); Total Bilirubin 0.5 mg/dL (0.2-1.0); Total Protein 5.1 g/dL (6.4-8.9)
--- NOTE | 2017-01-31 08:14 | PN ---
Progress Note - Progress Note Date of Service: 01/31/17 Note: POD#9 s/p colectomy Back on vent with resp failure. Could not manage secretions, tired out. Remains afeb w/ good VS UO large, stoma output liquid. On TPN Abd soft, non-dist, incis clean, no infection, stoma pink Minimal periph edema. Labs noted Vent per Dr Barcenas. Nutrition still an issue
[2017-01-31] MEDS: Pantoprazole IV* 40 MG IV SCH (08:24)
[2017-01-31] MEDS: Heparin VIAL(*) 5000 UNITS/ML VIAL (FIVE THOUSAND) SUBCUT SCH ×2 (08:24→21:54)
[2017-01-31] MEDS: Potassium & Sodium Phos 250MG* = 1 PACKET NG TUBE SCH ×3 (08:36→21:55)
[2017-01-31 09:24] LABS: Immature Granulocytes 1 % (0-9); Myelocytes % 1 % (0-1); Neutrophil % 66 % (38-83)
[2017-01-31 09:25] LABS: Hypochromasia 1+; Toxic Granulation 1+
[2017-01-31 09:26] LABS: Add Path Review? YES
[2017-01-31] MEDS: Ciprofloxacin 400MG IVPREMIX(* 400 MG/200 ML BAG IVPB SCH (10:05)
--- NOTE | 2017-01-31 11:23 | PN ---
Progress Note - Progress Note Date of Service: 01/31/17 Note: CRITICAL CARE MEDICINE DATE: 01/31/17 TIME: 1030 SUBJECTIVE: Patient seen and examined. PHYSICAL EXAM: Vital Signs: Reviewed. 35% high level pcv. Neurologic: rass 0, communicating some HEENT: anciteric, perrl, ett in place. RIJ stable. Cardiovascular: reg, no m appreciable Respiratory: coarse bl but distant and clear Abdomen: soft, ileostomy intact. wound well. Extremities: warmer; still with edema. Access: RIJ LABS: Reviewed. IMAGING: Reviewed. MEDICATIONS: Reviewed. ASSESSMENT: 86 M Acute hypoxic resp failure - reintubated 01/30 after failed liberation due to wob and secretions. 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 PLAN: Neurologic: off sedation as able. prns may severe better today. Cardiovascular: perfused. mobilize more fluid with lasix. Respiratory: APRV to see if we can recruit at all. adjunctives from there. need secretion clearance. look to attempt liberation in next 24-48h directly to niv to see if we can nurse him through, but as a DNI this time. Gastrointestinal: sup. tpn same today. off tf. waiting bowel recovery but avoiding enteral for now to set up towards another liberation attempt directly to niv. Renal/Metabolic: claire and mobilization today. Infectious Disease: on cipro and flagyl can can dc abx as no infective burden. Hematology: stable. vte prophylaxis. blast appearing on cbc and will need onc f/ u, but if he can't liberate it can't benefit. Endocrine: pulse of steroids continued through liberation. Musculoskeletal: f/u ostomy and wound healing Psych/Social: will update family Supportive and preventative care as ordered. SUP: H2 VTE prophylaxis: heparin Claire catheter given critical illness, monitoring needs for accurate assessment of DOYLE and KDIGO criteria for critically ill patients and to avoid potential harms of urinary retention, skin breakdown/ulcers. Disposition: ICU Code Status: DNR, trial intubation Critical Care Time: 35min FMykel Barcenas DO
[2017-01-31] MEDS ORDERED: Insulin GLARGINE(*) 1 UNITS UNIT SUBCUT ONE (12:21)
[2017-01-31] MEDS: Furosemide IV* 10 MG/ML VIAL (40 MG) IV SLOW PU SCH ×2 (13:43→21:53)
[2017-01-31] MEDS ORDERED: Albumin Human 25%* 50 ML BTL IV ONE (14:24)
[2017-01-31] MEDS: Albumin Human 25%* 50 ML in PREMIX* 0 ML IV SCH ×2 (14:26→22:15)
[2017-01-31] MEDS: TPN* 24 HR with Dextrose 50% Water* 500 ML, Amino Acid Infusion 10%* 850 ML, Sterile Wa... CENTR SCH ×12 (17:20)
[2017-01-31] MEDS: Propofol* 100 ML IV SCH (19:48)
[2017-01-31] MEDS: Acetaminophen ADULT LIQ* 650 MG/20.3 ML UDC NG TUBE PRN (20:22)
[2017-02-01] MEDS: fentaNYL* 50 MCG/ML 2 ML VIAL (100 MCG VIAL) IV SLOW PU PRN ×5 (00:07→20:49)
[2017-02-01] MEDS: Insulin REGULAR(*) 1 UNITS UNIT SUBCUT SCH ×4 (00:07→18:42)
[2017-02-01] MEDS: Chlorhexidine MOUTHWASH 0.12%* 15 ML UDC SWISH SPIT SCH ×6 (02:01→20:53)
[2017-02-01] MEDS: Albumin Human 25%* 50 ML in PREMIX* 0 ML IV SCH ×2 (02:01→08:53)
[2017-02-01] MEDS: Acetaminophen ADULT LIQ* 650 MG/20.3 ML UDC NG TUBE PRN ×4 (02:57→20:53)
[2017-02-01 06:05] LABS: BUN/Creatinine Ratio 55.4 (8-20); Calcium 8.3 mg/dL (8.6-10.3); EGFR African American 129.3 (>60); EGFR Non-African American 100.5 (>60); Potassium 4.4 mmol/L (3.5-5.0)
[2017-02-01] MEDS: Propofol* 100 ML IV SCH ×2 (06:27→18:52)
[2017-02-01] MEDS ORDERED: Albumin Human 25%* 50 ML BTL IV ONE (08:50)
[2017-02-01] MEDS: Furosemide IV* 10 MG/ML VIAL (40 MG) IV SLOW PU SCH ×2 (08:53→20:54)
[2017-02-01] MEDS: Heparin VIAL(*) 5000 UNITS/ML VIAL (FIVE THOUSAND) SUBCUT SCH ×2 (08:53→20:54)
[2017-02-01] MEDS: methylPREDNISolone SOD 40 MG* 1 ML VIAL IV SCH ×2 (08:54→20:54)
[2017-02-01] MEDS: Potassium & Sodium Phos 250MG* = 1 PACKET NG TUBE SCH ×3 (08:54→20:53)
--- NOTE | 2017-02-01 11:36 | PN ---
Progress Note - Progress Note Date of Service: 02/01/17 Note: CRITICAL CARE MEDICINE DATE: 02/01/17 TIME: 1100 SUBJECTIVE: Patient seen and examined. PHYSICAL EXAM: Vital Signs: Reviewed. 35% high level cpap this am. Neurologic: rass -2, awakens HEENT: anciteric, perrl, ett in place. RIJ stable. Cardiovascular: reg, no m appreciable Respiratory: coarse but clear Abdomen: soft, ileostomy intact. wound well. Extremities: warmer; less edema. Access: RIJ LABS: Reviewed. IMAGING: Reviewed. MEDICATIONS: Reviewed. ASSESSMENT: 86 M Acute hypoxic resp failure - reintubated 01/30 after failed liberation due to wob and secretions. 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 PLAN: Neurologic: light sedation. Cardiovascular: perfused. mobilize further fluid as able. Respiratory: cpap today and back to pcv. not moving much secretions which will still be a limiter. they will be dry post lasix but still hopefully give him the best opportunity to liberate. Not ready today but push for tomorrow directly to niv. Gastrointestinal: sup. tpn same today. sup Renal/Metabolic: claire and mobilization today. colloid loaded to help lasix mobilize. Infectious Disease: off abx. does have fever this am. seems non-infectious. abd benign. would not image. unfortunately this may be more bone marrow related which is impeding his ability to thrive. Hematology: stable. vte prophylaxis. cbc in am. Endocrine: pulse of steroids continued through liberation. Musculoskeletal: f/u ostomy and wound healing Psych/Social: family updated at length - in agreement for DNI when liberated and if fails would need comfort. Supportive and preventative care as ordered. SUP: ppi VTE prophylaxis: heparin Claire catheter given critical illness, monitoring needs for accurate assessment of DOYLE and KDIGO criteria for critically ill patients and to avoid potential harms of urinary retention, skin breakdown/ulcers. Disposition: ICU Code Status: DNR, trial intubation Critical Care Time: 35min Erin Barcenas DO
--- NOTE | 2017-02-01 11:44 | PN ---
Progress Note - Progress Note Date of Service: 02/01/17 SOAP: Subjective: Pt seen and examined. Case d/w CCM. Fevers are new. Still intubated, sedated. On TPN, NPO Family at bedside Objective: Temp Pulse Resp BP Pulse Ox 102.9 F 87 22 154/61 100 02/01/17 10:01 02/01/17 10:01 02/01/17 10:00 02/01/17 10:00 02/01/17 10:01 UO good, pt is being diuresed. intubated, sedated. tries to open eyes to request abdo: soft/ ND staple line intact w/o redness ileostomy with miniaml output including flatus Labs noted Assessment: POD 9 segmental colectomy, loop ileostomy, fevers, leukopenia, COPD, respiratory distress Plan: Continue [facility] management Low threshold for CT scan a/p, chest abx nutrition
[2017-02-01] MEDS ORDERED: Magnesium Sulfate 2 GM IV* 2 GM/50 ML BAG IVPB ONE (14:00)
[2017-02-01] MEDS: Lansoprazole susp Kit 3 MG/ML (30 MG = 10 ML) G TUBE SCH (14:41)
[2017-02-01] MEDS: TPN* 24 HR with Dextrose 50% Water* 500 ML, Amino Acid Infusion 10%* 850 ML, Sterile Wa... CENTR SCH ×12 (17:09)
[2017-02-02] MEDS: Insulin REGULAR(*) 1 UNITS UNIT SUBCUT SCH ×3 (00:03→12:06)
[2017-02-02] MEDS: Chlorhexidine MOUTHWASH 0.12%* 15 ML UDC SWISH SPIT SCH ×3 (00:04→10:47)
[2017-02-02] MEDS: Acetaminophen ADULT LIQ* 650 MG/20.3 ML UDC NG TUBE PRN ×2 (02:41→09:09)
[2017-02-02] MEDS: fentaNYL* 50 MCG/ML 2 ML VIAL (100 MCG VIAL) IV SLOW PU PRN ×2 (03:13→09:46)
[2017-02-02 06:12] LABS: Hematocrit 24 % (42-52); Hemoglobin 8.2 g/dl (14.0-18.0); Mean Corpuscular HGB Conc 34 g/dl (31-36); Mean Corpuscular Hemoglobin 32 pg (27-31); Mean Corpuscular Volume 94 fL (80-94); Mean Platelet Volume 10 um3 (7.4-10.4); Red Blood Count 2.57 10^6/ul (4.0-5.4); Red Cell Distribution Width 18 % (10.5-15)
[2017-02-02 06:13] LABS: Comments Flag Yes
[2017-02-02 06:14] LABS: Add Diff/Slide Review? Slide Review Added; White Blood Count 3.4 10^3/ul (3.5-10.8)
[2017-02-02 06:36] LABS: BUN/Creatinine Ratio 58.4 (8-20); Calcium 8.4 mg/dL (8.6-10.3); EGFR African American 123.5 (>60); Magnesium 2.4 mg/dL (1.9-2.7); Phosphorus 3.2 mg/dL (2.5-5.0); Potassium 4.5 mmol/L (3.5-5.0)
[2017-02-02 06:44] LABS: Add Path Review? YES; Hypochromasia 1+; Immature Granulocytes 12 % (0-9); Metamyelocytes % 2 % (0-2); Myelocytes % 3 % (0-1); Neutrophil % 48 % (38-83); Reactive Lymph % 1 % (0-6)
[2017-02-02 06:45] LABS: Toxic Granulation 1+
[2017-02-02] MEDS: Propofol* 100 ML IV SCH (06:49)
[2017-02-02] MEDS: methylPREDNISolone SOD 40 MG* 1 ML VIAL IV SCH (09:01)
[2017-02-02] MEDS: Furosemide IV* 10 MG/ML VIAL (40 MG) IV SLOW PU SCH (09:04)
[2017-02-02] MEDS: Heparin VIAL(*) 5000 UNITS/ML VIAL (FIVE THOUSAND) SUBCUT SCH (09:07)
[2017-02-02] MEDS: Potassium & Sodium Phos 250MG* = 1 PACKET NG TUBE SCH (09:09)
[2017-02-02] MEDS: Lansoprazole susp Kit 3 MG/ML (30 MG = 10 ML) G TUBE SCH (09:10)
[2017-02-02] MEDS ORDERED: NS 0.9% 1000 ML* 1,000 ML IV ONE (09:35)
[2017-02-02] MEDS ORDERED: Acetaminophen IV 1GM/100ML * 1,000 MG/100 ML VIAL IVPB ONE (10:34)
--- NOTE | 2017-02-02 11:38 | RAD ---
INDICATION: Fever. Spectral failure COMPARISON: January 30, 2017 TECHNIQUE: An AP portable view obtained at 0940 hours is submitted. FINDINGS: Bones/Soft Tissues: There are no acute bony findings. There is right IJ catheter terminating in the superior vena cava. There is an endotracheal tube 3.5 centers above the bebo. Cardiomediastinal: The cardiomediastinal silhouette is normal. Lungs: There is airspace disease in the right lung base which has a nodular configuration. This is most consistent with a progressive infiltrate as it was not evident recently. The remaining lung sosa are clear. Pleura: There is a right-sided effusion. Other: None IMPRESSION: ENDOTRACHEAL TUBE IN SATISFACTORY POSITION. RIGHT-SIDED EFFUSION.
--- NOTE | 2017-02-02 12:08 | PN ---
Progress Note - Progress Note Date of Service: 02/02/17 Note: CRITICAL CARE MEDICINE DATE: 02/02/17 TIME: 1000 SUBJECTIVE: Patient seen and examined. PHYSICAL EXAM: Vital Signs: Reviewed. 35% pcv Neurologic: rass -1, awakens HEENT: anciteric, perrl, ett in place. RIJ stable. Cardiovascular: reg, no m appreciable Respiratory: coarse but clear still but rate up with fever this am Abdomen: very soft, ileostomy intact. wound well. Extremities: warm; markedly less edema. Access: RIJ LABS: Reviewed. IMAGING: Reviewed. MEDICATIONS: Reviewed. ASSESSMENT: 86 M Acute hypoxic resp failure - reintubated 01/30 after failed liberation due to wob and secretions. 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 PLAN: Neurologic: off sedation. prn narcs Cardiovascular: perfused and mobilized well. Respiratory: needs to liberate. not much has really improved on lung function since re-intubation except for fluid mobilization but needs try. directly to niv. doubt he can maintain but explained to family the try and if failing would make comfort care. Gastrointestinal: sup. tpn same today but can hold tonight. sup Renal/Metabolic: claire and gave back a touch of fluids this am given intravasc vol with fever. Infectious Disease: off abx. fevers again. question cancer related most likely. certainly not seeming infectious. not enough atelectasis to explain; may still have aspiration dynamics. at risk for sinusitis or other but liberate today. doesn't seem to be drug related. see how his curve does post liberation. Hematology: stable. vte prophylaxis. cbc still pancyto Endocrine: pulse of steroids continued Musculoskeletal: f/u ostomy and wound healing Psych/Social: family updated at length - in agreement for DNI today and comfort if and as indicated. Supportive and preventative care as ordered. SUP: ppi VTE prophylaxis: heparin Claire catheter given critical illness, monitoring needs for accurate assessment of DOYLE and KDIGO criteria for critically ill patients and to avoid potential harms of urinary retention, skin breakdown/ulcers. Disposition: ICU Code Status: DNR/DNI Critical Care Time: 35min Erin Barcenas DO
[2017-02-02] MEDS ORDERED: Morphine INJ* 10 MG/ML 1 ML CARPUJECT IV ONE ×3 (13:20→13:33)
[2017-02-02] MEDS: Morphine INJ* 10 MG/ML 1 ML CARPUJECT ONE ×3 (13:24→16:57)
[2017-02-02] MEDS ORDERED: Morphine INJ* 10 MG/ML 1 ML CARPUJECT ONE ×2 (13:26→16:53)
[2017-02-02] MEDS ORDERED: Morphine PCA ADULT* 5 MG/ML 30 ML ONE (13:36)
--- NOTE | 2017-02-02 13:39 | PN ---
Progress Note - Progress Note Date of Service: 02/02/17 Note: CRITICAL CARE MEDICINE DATE: 02/02/17 TIME: 1320 Pt liberated directly to niv. tolerated for over an hour, 50%, still iwth high MV and large tv on 08/10. Taken off to 50% mask and failed quickly. poor secretion clearance, poor muscle mechanics with rapid shallow breathing and desat. Already discussed with family, and clear pt showing inability to thrive and mv dependence and we switched to comfort care. Morphine boluses and gtt. Allow him to be comfortable. Family declined spiritual care. Dying. Disposition: ICU Code Status: DNR/DNI Critical Care Time: 15min Erin Barcenas DO
[2017-02-02] MEDS ORDERED: HYDROmorphone INJ* 2 MG/ML CARPUJECT SYRINGE ONE (13:43)
[2017-02-02] MEDS ORDERED: HYDROmorphone INJ* 2 MG/ML CARPUJECT SYRINGE IV SLOW PU ONE (13:43)
[2017-02-02] MEDS ORDERED: Morphine PCA ADULT* 5 MG/ML 30 ML PCA SCH (14:00)
--- NOTE | 2017-02-02 14:59 | DS ---
CRITICAL CARE MEDICINE DISCHARGE SUMMARY ADMISSION DATE: 01/19/2017 ICU ADMISSION DATE: 01/26/2017 ICU DISCHARGE DATE: 02/03/2017 PRIMARY CARE PROVIDER: Wood. REFERRING PHYSICIAN: Elvin. DIAGNOSIS: 1. Adenocarcinoma of colon. 2. Acute hypoxic resp failure. 3. Acute aspiration pneumonitis 4. Malnutrition moderate to severe degree 5. Chronic obstructive pulmonary disease. 6. Multifactorial anemia. 7. Pancytopenia. 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 ALLERGIES: None. HOSPITAL COURSE: 86 year old male admitted with abdominal discomfort, weight loss and more confusion at home. Large transverse colon mass found. Admitted and evaluated for surgery given the large bowel impeding obstruction. Tolerated ileocolonic resection but given risk for leak he had a protective loop ileostomy placed. Tolerated his care for a few days and attempted to advance diet. In the late afternoon on 01/26/2017 patient with declining status and aspiration pneumonitis and distributive shock ensuing. Required intubation and vasopressors for a short time. Difficult to wean off mechanical ventilation given lung disease and metabolic demands. Remained on TPN and unable to tolerate enteral feeds. Briefly on antibiotics without infective source. Bone marrow seemed to become more depressed through his course as well and further inability to thrive. Extubation on 01/30/2017 but shortly after inability to clear secretions with escalating work of breathing. Re-intubated and more time but to no avail. Attempted liberation on 02/02/2017 directly to non-invasive ventilation but his mechanics still failed and inability to overcome with family deciding for comfort measures alone and patient placed on morphine drip and allowed to pass peacefully with family at bedside. Patient tolerated comfort until passing at 12:00pm on 02/03/2017 with family at bedside. DISPOSITION: . Erin Barcenas DO
[2017-02-02] MEDS: Midazolam* 1 MG/ML 2 ML VIAL (2 MG) IV SLOW PU PRN ×4 (16:16→22:09)
[2017-02-02] MEDS: Morphine PCA ADULT* 5 MG/ML 30 ML PCA SCH (19:55)
[2017-02-03] MEDS: Midazolam* 1 MG/ML 2 ML VIAL (2 MG) IV SLOW PU PRN (00:50)
[2017-02-03] MEDS: Morphine PCA ADULT* 5 MG/ML 30 ML PCA SCH ×3 (00:58→11:05)
[2017-02-03] MEDS ORDERED: HYDROmorphone INJ* 2 MG/ML CARPUJECT SYRINGE IV SLOW PU ONE (10:15)
--- NOTE | 2017-02-03 11:05 | PN ---
Progress Note - Progress Note Date of Service: 02/03/17 Note: CRITICAL CARE MEDICINE DATE: 02/03/17 TIME: 1000 Pt seem and examined at bedside. dying but amazing that he is still here. d/w family. coma. comfortable. sats 60s, hr 130; should still pass soon. family appreciative. Disposition: ICU Code Status: DNR/DNI, comfort Critical Care Time: 20min Erin Barcenas, DO
[2017-02-03 12:13] VITALS: BP 69/33
== END 2017-02-03 12:00 | disposition expired | DRG 329 ==
LOC: ED 09:02 → MED 10:57 → SSU 01-22 23:42 → ICU 01-26 15:59
PROVIDERS: ADMIT Internal Medicine; ATTEND Internal Medicine Critical Care Medicine
PROC: 0DBL8ZX Excision of Transverse Colon, Via Natural or Artificial Opening Endoscopic, Diagnostic (ICD-10-PCS; 2017-01-20)
PROC: 0D1B0Z4 Bypass Ileum to Cutaneous, Open Approach (ICD-10-PCS; 2017-01-22)
PROC: 0TBB8ZZ Excision of Bladder, Via Natural or Artificial Opening Endoscopic (ICD-10-PCS; 2017-01-22)
PROC: 30233N1 Transfusion of Nonautologous Red Blood Cells into Peripheral Vein, Percutaneous Approach (ICD-10-PCS; 2017-01-22)
PROC: 0T9B80Z Drainage of Bladder with Drainage Device, Via Natural or Artificial Opening Endoscopic (ICD-10-PCS; 2017-01-22)
PROC: 0T7D8ZZ Dilation of Urethra, Via Natural or Artificial Opening Endoscopic (ICD-10-PCS; 2017-01-22)
PROC: 0DTF0ZZ Resection of Right Large Intestine, Open Approach (ICD-10-PCS; 2017-01-22 14:00)
PROC: 3E0336Z Introduction of Nutritional Substance into Peripheral Vein, Percutaneous Approach (ICD-10-PCS; principal; 2017-01-26)
PROC: 5A1945Z Respiratory Ventilation, 24-96 Consecutive Hours (ICD-10-PCS; 2017-01-26)
PROC: 0BH17EZ Insertion of Endotracheal Airway into Trachea, Via Natural or Artificial Opening (ICD-10-PCS; 2017-01-26)
PROC: 05HM33Z Insertion of Infusion Device into Right Internal Jugular Vein, Percutaneous Approach (ICD-10-PCS; 2017-01-26)
PROC: B543ZZA Ultrasonography of Right Jugular Veins, Guidance (ICD-10-PCS; 2017-01-26)
PROC: 3E043XZ Introduction of Vasopressor into Central Vein, Percutaneous Approach (ICD-10-PCS; 2017-01-26)
PROC: 0BP1XDZ Removal of Intraluminal Device from Trachea, External Approach (ICD-10-PCS; 2017-01-30)
PROC: 0BH17EZ Insertion of Endotracheal Airway into Trachea, Via Natural or Artificial Opening (ICD-10-PCS; 2017-01-30)
PROC: 5A09357 Assistance with Respiratory Ventilation, Less than 24 Consecutive Hours, Continuous Positive Airway Pressure (ICD-10-PCS; 2017-01-30)
PROC: 5A1945Z Respiratory Ventilation, 24-96 Consecutive Hours (ICD-10-PCS; 2017-01-30)
DX: C18.4 Malignant neoplasm of transverse colon (principal); J69.0 Pneumonitis due to inhalation of food and vomit; E43 Unspecified severe protein-calorie malnutrition; J96.01 Acute respiratory failure with hypoxia; R57.8 Other shock; R40.20 Unspecified coma; G93.1 Anoxic brain damage, not elsewhere classified; D61.818 Other pancytopenia; J44.9 Chronic obstructive pulmonary disease, unspecified; D50.9 Iron deficiency anemia, unspecified; E83.42 Hypomagnesemia; M19.90 Unspecified osteoarthritis, unspecified site; Z66 Do not resuscitate; R40.2412 Glasgow coma scale score 13-15, at arrival to emergency department; D72.819 Decreased white blood cell count, unspecified; R00.0 Tachycardia, unspecified; Z51.5 Encounter for palliative care; R41.3 Other amnesia; Z96.1 Presence of intraocular lens; N35.9 Urethral stricture, unspecified; N32.0 Bladder-neck obstruction; Z85.46 Personal history of malignant neoplasm of prostate; Z90.79 Acquired absence of other genital organ(s); Z98.41 Cataract extraction status, right eye; Z87.891 Personal history of nicotine dependence; Z86.010 Personal history of colon polyps; Z68.20 Body mass index [BMI] 20.0-20.9, adult; Z98.42 Cataract extraction status, left eye
CPT/HCPCS: 36415; 71010; 71020; 80048; 80053; 82330; 82465; 83010; 83605; 83615; 83690; 83735; 83880; 84100; 84134; 84478; 85025; 85027; 85060; 85610; 86140; 86850; 86900; 86901; 86922; 87040; 87641; 88305; 88309; 88341; 88342; 93005; 94002; 94003; 94660; 94760; 99156; 99157; A9270-GY; C1776; J0330; J0610; J0692; J0696; J0744; J1100; J1170; J1335; J1580; J1644; J1885; J1940; J2060; J2175; J2250; J2270; J2405; J2704; J2920; J3010; J3475; J3480; J3490; P9040; P9045; P9047